=== PATIENT | male | born 1940 | race Two or more races ===

== ENCOUNTER 2020-05-31 11:11 | Emergency (ER) | payer OTHER, SELFPAY | END 2020-05-31 12:10 | disposition left against medical advice (07) | PROVIDERS: Emergency Provider Emergency Medicine; PCP Internal Medicine | DX: R21 Rash and other nonspecific skin eruption (principal) | CPT/HCPCS: 99281 ==

== ENCOUNTER 2020-09-11 | Outpatient (REF) | payer MEDICARE, MEDICAID, SELFPAY | END 2020-09-11 00:01 | disposition home or self-care (01) | LOC: HO.VC | PROVIDERS: Visit Provider Internal Medicine | DX: Z23 Encounter for immunization (principal) | CPT/HCPCS: 0011A ==

== ENCOUNTER 2020-10-09 | Outpatient (REF) | payer OTHER, SELFPAY | END 2020-10-09 00:01 | disposition home or self-care (01) | LOC: HO.VC | PROVIDERS: Visit Provider Internal Medicine | DX: Z23 Encounter for immunization (principal) | CPT/HCPCS: 0012A ==

== ENCOUNTER 2021-05-07 09:45 | Outpatient (REF) | payer OTHER, SELFPAY ==
[2021-05-07 10:03] LABS: MANUAL DIFF FLAG NO
[2021-05-07 10:27] LABS: Basophils Absolute Auto 0.1 X10*3/uL (0.0-0.2); Basophils Percent Auto 0.7 % (0-2); Eosinophils Absolute Auto 0.6 X10*3/uL (0.0-0.4); Eosinophils Percent Auto 6.8 % (0-4); Hematocrit 44.4 % (42-52); Hemoglobin 15.1 g/dl (14.0-18.0); Imm Gran Abs Auto 0.01 X10*3/uL (0.00-0.03); Imm Gran Pct Auto 0.1 % (0.0-0.4); Lymphocytes Absolute Auto 3.7 X10*3/uL (1.2-4.9); Lymphocytes Percent Auto 43.1 % (20-40); Mean Corpuscular Hemoglobin 32.5 pg (27.0-33.0); Mean Corpuscular Volume 95.5 fL (80-98); Mean Platelet Volume 9.3 fL (9.4-12.4); Monocytes Absolute Auto 0.6 X10*3/uL (0.1-1.2); Monocytes Percent Auto 6.9 % (2-11); Neutrophils Absolute Auto 3.6 X10*3/uL (2.0-8.3); Neutrophils Percent Auto 42.4 % (45-73); Platelet Count 232 X10*3/uL (160-400); Red Blood Count 4.65 X10*6/uL (4.60-5.80); Red Cell Distribution Width 13.6 % (11.0-16.0); White Blood Count 8.5 X10*3/uL (4.8-10.8)
[2021-05-07 10:56] LABS: Alanine Aminotransferase 16 U/L (0-40); Albumin Level 4.3 g/dL (3.5-5.0); Alkaline Phosphatase 61 U/L (39-117); Anion Gap 11 (12-20); Aspartate Amino Transferase 21 U/L (5-37); Bilirubin Total 0.5 mg/dL (0.0-1.0); Blood Urea Nitrogen 18 mg/dL (9-16); Calcium 9.6 mg/dL (8.4-10.2); Carbon Dioxide 26 mmol/L (22-29); Chloride 108 mmol/L (96-108); Cholesterol 164 mg/dL; Estimated Glomerular Filt Rate > 60; Glucose Random 99 mg/dL (60-115); HDL Cholesterol 38 mg/dL; LDL Cholesterol Calculated 104 mg/dl; Potassium 4.2 mmol/L (3.3-5.1); Sodium 141 mmol/L (135-145); Total Protein 7.2 g/dL (6.5-8.0); Triglycerides 110 mg/dL
[2021-05-07 11:12] LABS: Free T4 (Free Thyroxine) 0.99 ng/dL (0.71-1.85); Thyroid Stimulating Hormone 1.89 uIU/mL (0.32-4.0)
[2021-05-07 11:28] LABS: Folate 15.7 ng/mL (> or = 4.0); Vitamin B12 860 pg/mL (200-900)
== END 2021-05-07 09:46 | disposition home or self-care (01) ==
LOC: HO.LAB 09:45
PROVIDERS: PCP Internal Medicine; Visit Provider Internal Medicine
DX: I10 Essential (primary) hypertension (principal); E78.00 Pure hypercholesterolemia, unspecified
CPT/HCPCS: 36415; 80053; 80061; 82607; 82746; 84439; 84443; 85025

== ENCOUNTER 2021-06-03 14:25 | Outpatient (REF) | payer OTHER, SELFPAY ==
--- NOTE | ~2021-06-03 | US_ITS ---
EXAMINATION: US RETROPERITONEAL LIMITED (RENAL ONLY) CLINICAL INFORMATION: Calculus of kidney. COMPARISON: CT abdomen and pelvis 04/12/2020. Renal ultrasound 10/11/2019. TECHNIQUE: Real-time imaging of the kidneys. FINDINGS: RIGHT KIDNEY: 10.0 x 4.2 x 4.5 cm (SAG x AP x TRV). The kidney is normal in size, contour, and echogenicity. Renal cortical thickness is normal. No hydronephrosis. There is a small benign cyst medial upper pole measuring only 0.8 cm and small cyst lower pole measuring only 1.0 cm. No additional follow-up required. There is a focal specular echo 0.3 cm interpolar region with twinkling artifact on color Doppler suggesting nonobstructing calculus. Other scattered specular echoes in the sinus but without twinkling artifact or posterior shadowing to confirm calculi. LEFT KIDNEY: 10.0 x 4.2 x 5.0 cm (SAG x AP x TRV). The kidney is normal in size, contour, and echogenicity. Renal cortical thickness is normal. No renal calculi or hydronephrosis. There are several benign renal cysts present, largest is at upper pole 1.7 x 1.4 cm. There is also cyst interpolar region measuring 1.3 cm and 0.8 cm, respectively. No additional follow-up required. Scattered specular echoes are present in the renal sinus but without posterior shadowing or definite twinkling artifact to confirm nonobstructing calculi. US/US renal BI IMPRESSION: 1. No hydronephrosis or caliectasis. 2. Suspect nonobstructing calculus interpolar right kidney 0.3 cm. Other numerous bilateral renal sinus specular echoes are present but without twinkling artifact or posterior shadowing to confirm nonobstructing calculi. 3. Small bilateral benign cysts, largest left upper pole 1.7 cm. No additional follow-up required.
== END 2021-06-03 14:26 | disposition home or self-care (01) ==
LOC: HO.US 14:25
PROVIDERS: PCP Internal Medicine; Visit Provider Internal Medicine
DX: N20.0 Calculus of kidney (principal)
CPT/HCPCS: 76775

== ENCOUNTER 2021-11-11 08:24 | Emergency (ER) | payer OTHER, SELFPAY ==
--- NOTE | ~2021-11-11 | XR_ITS ---
EXAMINATION: XR CHEST CLINICAL INFORMATION: Cough COMPARISON: Previous chest x-ray April 2020 TECHNIQUE: 2 views of the chest were obtained. FINDINGS: The cardiac and mediastinal contours are stable. The lungs are clear. There is no pleural effusion or pneumothorax. There is mild scoliosis of the thoracic spine and degenerative changes. XR/XR chest 2V IMPRESSION: No evidence for acute disease in the chest.
[2021-11-11 08:42] VITALS: BP 119/82; PULSE 91; RESP 18; TEMP 36.9; O2SAT 94; BMI 25.2
[2021-11-11 09:09] LABS: COVID-19 Test Negative (Negative); IDNOW Serial# 16C4AD1C
[2021-11-11 09:27] LABS: Influenza A Negative (Negative); Influenza B2 Negative (Negative)
--- NOTE | 2021-11-11 09:44 | ED.URI ---
HPI - URI/Sore Throat General Chief Complaint: Upper Respiratory Symptoms Stated Complaint: throat pain Time Seen by Provider: 11/11/21 09:44 History of Present Illness HPI Narrative: Patient complains of productive cough for several days accompanied by pain in his throat when ever he coughs however he has no other pain in his throat and is eating and drinking normally, no shortness of breath no chest pain no Related Data Previous Rx's Medication Instructions Recorded losartan 100 mg tablet 100 mg PO DAILY #90 tab 04/28/21 losartan 100 1 tab PO DAILY 30 Days #30 tab 10/16/21 mg-hydrochlorothiazide 12.5 mg tablet acetaminophen 500 mg tablet 1,000 mg PO QID PRN #30 tab 11/11/21 azithromycin 250 mg tablet See Rx Instructions .ROUTE 11/11/21 (Zithromax Z-Hermann) .COMPLEX #6 tab Allergies Allergy/AdvReac Type Severity Reaction Status Date / Time cat dander [CATS] Allergy Mild RUNNY NOSE Verified 11/11/21 08:42 lisinopril Allergy Unknown Coughing Verified 11/11/21 08:42 amlodipine AdvReac Intermediate spots in Verified 11/11/21 08:42 eyes Review of Systems Review of Systems: Positive for cough Negatives are no fever no chills no dizziness weakness no fainting no feeling faint no difficulty breathing or swallowing no headache no stiff neck no chest pain no shortness of breath no abdominal pain no nausea vomiting or diarrhea no skin rash Yes all other systems are reviewed and are negative [facility] Past Medical History Source: nursing notes reviewed Medical History (Updated 11/11/21 @ 09:53 by CHARLI Palmer) BPH (benign prostatic hyperplasia) Hypertension Memory deficit Partial small bowel obstruction Renal calculus Surgical History (Updated 10/23/20 @ 21:25 by Jessenia Zhu MD) History of testicular surgery History of tonsillectomy Family History Family History (System 10/01/20 @ 13:46 by Brittany Hicks) Father No problems noted. Mother No problems noted. Father No problems noted. Mother No problems noted. Social History Social History (Updated 10/25/20 @ 09:52 by Silvia Castaneda CMA) Housing: Apartment Alcohol intake: current Alcohol intake frequency: a few times a month Patient Tobacco Use Status: Former Tobacco user Tobacco use type: Cigarette e-Cigarette/Vaping Use: Never Used Second Hand Smoke Exposure: No Advance Directives: Yes Advance Directives Information Provided: No Advance Directives on File: No Current occupational status: retired Physical Exam Vital Signs: Vital Signs: Last Vital Signs Temp 98.4 F 11/11/21 08:42 Pulse 91 11/11/21 08:42 Resp 18 11/11/21 08:42 BP 119/82 11/11/21 08:42 Pulse Ox 94 11/11/21 08:42 BMI result Body Mass Index 25.2 General appearance no distress comfortable relaxed cooperative Eyes no redness no discharge The sinuses nontender The pharynx is clear with no redness swelling or exudate Neck is supple no lymphadenopathy The chest is clear to auscultation with full symmetric equal breath sounds Heart no murmur Abdomen soft nontender Extremities full range of motion x4 with no calf swelling or tenderness no edema Skin no rash Course Course Course Narrative: X-ray was negative, well-appearing patient with a cough with no difficulty breathing, tolerating p.o., clear lungs is discharged with antibiotic treatment for bronchitis MDM - URI/Sore Throat Lab Data Labs: Lab Results 11/11/21 11/11/21 Range/Units 08:47 08:47 COVID-19 (BERTHA) Negative (Negative) COVID-19 Clin Com See Note Influenza Type A (KRISTA) Negative (Negative) Influenza Type B (KRISTA) Negative (Negative) Influenza A & B Note See Note Discharge Plan Discharge Clinical Impression: Bronchitis Patient Disposition: Home, Self-Care Additional Instructions: Testing for COVID and flu were negative Chest x-ray did not show any pneumonia, physical exam and vital signs were normal We are treating for bronchitis with antibiotics Zithromax It is a good idea to take probiotics available [id number] in the vitamin section of the pharmacy to prevent diarrhea from antibiotics Return any time for difficulty breathing, any worse condition or any concerns Prescriptions: New azithromycin [Zithromax Z-Hermann] 250 mg tablet See Rx Instructions .ROUTE .COMPLEX Qty: 6 0RF Rx Instructions: For 250 mg dose pack: take 500 mg today (day 1), then 250 mg for 4 days (days 2-5) acetaminophen 500 mg tablet 1,000 mg PO QID PRN (Reason: pain) Qty: 30 0RF No Action losartan 100 mg tablet 100 mg PO DAILY Qty: 90 1RF losartan-hydrochlorothiazide 100-12.5 mg tablet 1 tab PO DAILY 30 Days Qty: 30 3RF Interventions: ED Discharge Assessment Last Done: 11/11/21 10:03 Discharge Date/Time: 11/11/21 10:05
--- NOTE | 2021-11-11 10:02 | PC.NURSE ---
PT AWAKE, ALERT AND ORIENTED X 3. SKIN PINK WARM AND DRY. RESP UNLBAORED. SPEAKING IN FULL CLEARN SENTENCES. MANAGING SECRETIONS. NO COUGH NOTED. NO ACUTE DISTRESS EVALUATED BY PROVIDER. PLAN IS FOR DC HOME. PT AGREEABLE TO PLAN
== END 2021-11-11 10:05 | disposition home or self-care (01) ==
PROVIDERS: Emergency Provider Emergency Medicine; PCP Internal Medicine
DX: J40 Bronchitis, not specified as acute or chronic (principal); Z20.822 Contact with and (suspected) exposure to COVID-19
CPT/HCPCS: 71046; 87502; 87635; 99282; 99283

== ENCOUNTER 2022-03-18 12:29 | Outpatient (REF) | payer OTHER, SELFPAY ==
[2022-03-18 14:03] LABS: Appearance Urine CLEAR; Color Urine YELLOW; Glucose Urine UA NEG (NEG); Leukocyte Esterase Urine NEG (NEG); Nitrite Urine NEG (NEG); Specific Gravity - Urine 1.015 (1.005-1.025); Urine Blood NEG (NEG); Urine Ketones NEG (NEG); Urine Protein NEG (NEG-TRACE)
[2022-03-18 14:24] LABS: Squamous Epithelial Cell Urine TRACE /LPF
[2022-03-18 14:25] LABS: WBC Urine 0-2 /HPF (0-4)
== END 2022-03-18 12:30 | disposition home or self-care (01) ==
LOC: HO.LAB 12:29
PROVIDERS: PCP Internal Medicine; Visit Provider Internal Medicine
DX: R10.9 Unspecified abdominal pain (principal); N20.0 Calculus of kidney
CPT/HCPCS: 81001

== ENCOUNTER 2022-03-19 11:23 | Outpatient (REF) | payer OTHER, SELFPAY ==
[2022-03-19 11:43] LABS: MANUAL DIFF FLAG NO
[2022-03-19 12:19] LABS: Basophils Absolute Auto 0.1 X10*3/uL (0.0-0.2); Basophils Percent Auto 0.5 % (0-2); Eosinophils Absolute Auto 0.6 X10*3/uL (0.0-0.4); Eosinophils Percent Auto 5.6 % (0-4); Hematocrit 38.6 % (42.0-52.0); Hemoglobin 13.4 g/dl (14.0-18.0); Imm Gran Abs Auto 0.03 X10*3/uL (0.00-0.03); Imm Gran Pct Auto 0.3 % (0.0-0.4); Lymphocytes Absolute Auto 2.6 X10*3/uL (1.2-4.9); Lymphocytes Percent Auto 23.8 % (20-40); Mean Corpuscular HGB Conc 34.7 g/dl (31.0-36.0); Mean Corpuscular Hemoglobin 32.4 pg (27.0-33.0); Mean Corpuscular Volume 93.5 fL (80.0-98.0); Mean Platelet Volume 9.1 fL (9.4-12.4); Monocytes Absolute Auto 0.7 X10*3/uL (0.1-1.2); Monocytes Percent Auto 6.2 % (2-11); Neutrophils Absolute Auto 6.9 x10*3/uL (2.0-8.3); Neutrophils Percent Auto 63.6 % (45-73); Platelet Count 199 X10*3/uL (160-400); Red Blood Count 4.13 X10*6/uL (4.60-5.80); Red Cell Distribution Width 13.2 % (11.0-16.0); White Blood Count 10.8 X10*3/uL (4.8-10.8)
[2022-03-19 12:45] LABS: Alanine Aminotransferase 14 U/L (0-40); Albumin Level 4.2 g/dL (3.5-5.0); Alkaline Phosphatase 52 U/L (39-117); Anion Gap 13 (12-20); Aspartate Amino Transferase 21 U/L (5-37); Bilirubin Total 1.3 mg/dL (0.0-1.0); Blood Urea Nitrogen 21 mg/dL (9-16); Calcium 8.9 mg/dL (8.4-10.2); Carbon Dioxide 28 mmol/L (22-29); Chloride 104 mmol/L (96-108); Cholesterol 132 mg/dL; Estimated Glomerular Filt Rate > 60; Glucose Random 89 mg/dL (60-115); HDL Cholesterol 33 mg/dL; LDL Cholesterol Calculated 73 mg/dl; Potassium 3.6 mmol/L (3.3-5.1); Sodium 141 mmol/L (135-145); Triglycerides 133 mg/dL
[2022-03-19 13:07] LABS: Thyroid Stimulating Hormone 1.47 uIU/mL (0.32-4.0)
[2022-03-19 13:53] LABS: Folate 9.7 ng/mL (> or = 4.0); Vitamin B12 761 pg/mL (200-900)
== END 2022-03-19 11:24 | disposition home or self-care (01) ==
LOC: HO.LAB 11:23
PROVIDERS: PCP Internal Medicine; Visit Provider Internal Medicine
DX: I10 Essential (primary) hypertension (principal); E78.00 Pure hypercholesterolemia, unspecified
CPT/HCPCS: 36415; 80053; 80061; 82607; 82746; 84439; 84443; 85025

== ENCOUNTER 2022-04-22 11:27 | Outpatient (REF) | payer OTHER, SELFPAY ==
--- NOTE | ~2022-04-22 | US_ITS ---
EXAMINATION: US RETROPERITONEAL LIMITED (RENAL ONLY) CLINICAL INFORMATION: Flank pain. Kidney stone. COMPARISON: Renal ultrasound 06/03/2021 and 10/11/2019. X-ray abdomen 04/13/2020. CT abdomen and pelvis 04/12/2020. TECHNIQUE: Real-time imaging of the kidneys. FINDINGS: RIGHT KIDNEY: 9.9 x 5.7 x 5.8 cm (SAG x AP x TRV). The kidney is normal in size, contour, and echogenicity. Renal cortical thickness is normal. There are 2 cysts measuring 1 cm in the upper and lower pole. No renal calculi or hydronephrosis. LEFT KIDNEY: 10.2 x 4.3 x 4.5 cm (SAG x AP x TRV). The kidney is normal in size, contour, and echogenicity. Renal cortical thickness is normal. There is a minimally complex cyst with septation in the upper pole measuring 1.2 x 1.7 x 1.9 cm. There is a 1 x 1.2 cm simple cyst in the midpole. There is a 2 mm echogenic density in the upper pole. This does not demonstrate acoustic shadowing or twinkle artifact to confirm a stone. No hydronephrosis. US/US renal BI IMPRESSION: Small bilateral renal cysts. 2 mm echogenic density in the upper pole questionable for a stone.
== END 2022-04-22 11:28 | disposition home or self-care (01) ==
LOC: HO.HMGCX 11:27
PROVIDERS: PCP Internal Medicine; Visit Provider Internal Medicine
DX: R10.9 Unspecified abdominal pain (principal); N20.0 Calculus of kidney
CPT/HCPCS: 76775

== ENCOUNTER 2022-10-26 14:29 | Outpatient (REF) | payer OTHER, SELFPAY ==
[2022-10-26 14:59] LABS: MANUAL DIFF FLAG NO
[2022-10-26 15:22] LABS: Basophils Absolute Auto 0.1 X10*3/uL (0.0-0.2); Basophils Percent Auto 0.5 % (0-2); Eosinophils Absolute Auto 0.7 X10*3/uL (0.0-0.4); Eosinophils Percent Auto 6.8 % (0-4); Imm Gran Abs Auto 0.03 X10*3/uL (0.00-0.03); Imm Gran Pct Auto 0.3 % (0.0-0.4); Immature Retic Fraction 10.5 % (2.3-13.4); Lymphocytes Absolute Auto 3.8 X10*3/uL (1.2-4.9); Lymphocytes Percent Auto 39.6 % (20-40); Mean Corpuscular HGB Conc 34.1 g/dl (31.0-36.0); Mean Corpuscular Hemoglobin 32.8 pg (27.0-33.0); Mean Platelet Volume 9.5 fL (9.4-12.4); Monocytes Absolute Auto 0.7 X10*3/uL (0.1-1.2); Monocytes Percent Auto 7.2 % (2-11); Neutrophils Absolute Auto 4.4 x10*3/uL (2.0-8.3); Neutrophils Percent Auto 45.6 % (45-73); Platelet Count 229 X10*3/uL (160-400); Red Blood Count 4.27 X10*6/uL (4.60-5.80); Red Cell Distribution Width 13.2 % (11.0-16.0); Retic HGB Equivalent 37.5 pg (30.0-35.0); Reticulocyte Percent 1.3 % (0.5-1.8); Reticulocytes Absolute 0.055 X10*6/uL (0.026-0.095); White Blood Count 9.6 X10*3/uL (4.8-10.8)
[2022-10-26 16:08] LABS: Alanine Aminotransferase 14 U/L (0-40); Albumin Level 4.1 g/dL (3.5-5.0); Alkaline Phosphatase 66 U/L (39-117); Anion Gap 9 (12-20); Aspartate Amino Transferase 22 U/L (5-37); Bilirubin Total 0.9 mg/dL (0.0-1.0); Blood Urea Nitrogen 19 mg/dL (9-16); Calcium 9.7 mg/dL (8.4-10.2); Carbon Dioxide 30 mmol/L (22-29); Chloride 109 mmol/L (96-108); Estimated Glomerular Filt Rate > 60; Glucose Random 82 mg/dL (60-115); Iron 124 mcg/dL (45-160); Percent Iron Saturation 51 % (15-50); Potassium 4.3 mmol/L (3.3-5.1); Sodium 144 mmol/L (135-145); Total Iron Binding Capacity 242 mcg/dL (228-428); Total Protein 7.1 g/dL (6.5-8.0); Unsaturated Iron Binding 118 ug/dL
[2022-10-26 16:27] LABS: Ferritin 144 ng/mL (20-250); Folate 10.2 ng/mL (> or = 4.0); Vitamin B12 501 pg/mL (200-900)
== END 2022-10-26 14:30 | disposition home or self-care (01) ==
LOC: HO.LAB 14:29
PROVIDERS: PCP Internal Medicine; Visit Provider Internal Medicine
DX: I10 Essential (primary) hypertension (principal); D64.9 Anemia, unspecified
CPT/HCPCS: 36415; 80053; 82607; 82728; 82746; 83540; 85025; 85045

== ENCOUNTER 2022-12-23 12:25 | Outpatient (REF) | payer OTHER, SELFPAY ==
--- NOTE | ~2022-12-23 | CT_ITS ---
EXAMINATION: CT MAXILLOFACIAL WITHOUT CONTRAST CLINICAL INFORMATION: Deviated nasal septum. COMPARISON: CT head from 05/28/2012. TECHNIQUE: Multidetector helical imaging was performed in the axial plane with generation of coronal and sagittal reformatted images. This CT examination was performed using dose optimization techniques as appropriate, variously including the following: *Automated exposure control. *Adjustment of mA and/or kV according to patient size (this includes techniques or standardized protocols for targeted exams where dose is matched to indication/reason for exam; i.e. extremities or head). *Use of iterative reconstruction technique. DLP: 102 mGy-cm FINDINGS: FRONTAL SINUSES AND DRAINAGE PATHWAYS: Minimal mucosal thickening of the frontal sinuses. The frontoethmoidal recesses are patent. MAXILLARY SINUSES AND DRAINAGE PATHWAYS: Minimal mucosal thickening of the maxillary sinuses. The maxillary ostia and infundibula are patent. ETHMOID SINUSES: Mild mucosal thickening of the ethmoid air cells. The ethmoid roofs appear symmetric and intact. SPHENOID SINUS AND DRAINAGE PATHWAYS: The sphenoid sinus is clear. The sphenoethmoidal recesses are patent. NASAL PASSAGE: Mild to moderate mucosal thickening of the nasal passages. Left-sided fani bulbosa. Moderate leftward deviation with spurring. ADDITIONAL RELEVANT FINDINGS: The lamina papyracea are intact. No demonstrated abnormalities of the orbits. The carotid canals are normally covered by bone. No significant maxillary periapical disease. 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 Mild degenerative arthropathy of the right temporomandibular joint. The mastoid air cells and middle ear cavities remain well aerated. Limited evaluation of the intracranial structures without significant abnormalities. CT/CT sinus wo IV con IMPRESSION: 1. Mild sinonasal mucosal disease. 2. Left-sided fani bulbosa. Moderate leftward deviation of the nasal septum with spurring. 3. 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
== END 2022-12-23 12:26 | disposition home or self-care (01) ==
LOC: HO.CT 12:25
PROVIDERS: PCP Internal Medicine; Visit Provider Otolaryngology
DX: J33.0 Polyp of nasal cavity (principal)
CPT/HCPCS: 70486

== ENCOUNTER 2023-01-15 12:55 | Outpatient (REF) | payer OTHER, SELFPAY ==
--- NOTE | ~2023-01-15 | US_ITS ---
EXAMINATION: US RETROPERITONEAL LIMITED (RENAL ONLY) CLINICAL INFORMATION: Calculus of kidney. COMPARISON: Renal ultrasound 04/22/2022 and 06/03/2021. X-ray abdomen 04/13/2020. CT abdomen and pelvis 04/12/2020. TECHNIQUE: Real-time imaging of the kidneys. FINDINGS: RIGHT KIDNEY: 10.2 x 4.6 x 4.2 cm (SAG x AP x TRV). The kidney is normal in size, contour, and echogenicity. Renal cortical thickness is normal. Some echogenic foci are noted in the kidney that do not necessarily represent stones, as none were seen on prior CT scans. These may represent vascular interfaces. No renal calculi or hydronephrosis. An upper and lower pole benign Bosniak class I renal cyst is present measuring 1.2 and 1.3 cm respectively. No additional imaging or followup is needed. No solid renal masses. LEFT KIDNEY: 10.4 x 4.7 x 4.5 cm (SAG x AP x TRV). The kidney is normal in size, contour, and echogenicity. Some echogenic foci are noted in the kidney that do not necessarily represent stones, as none were seen on prior CT scans. These may represent vascular interfaces. Renal cortical thickness is normal. No renal calculi or hydronephrosis. Upper and midpole benign Bosniak class I renal cysts are present measuring 1.8 and 1.5 cm respectively. No additional imaging or followup needed. No solid renal masses. US/US renal BI IMPRESSION: No definite renal calculi are seen. Echogenic foci probably represent vascular interfaces. A CT scan would be more sensitive.
== END 2023-01-15 12:56 | disposition home or self-care (01) ==
LOC: HO.US 12:55
PROVIDERS: PCP Internal Medicine; Visit Provider Internal Medicine
DX: N20.0 Calculus of kidney (principal)
CPT/HCPCS: 76775

== ENCOUNTER 2023-01-25 14:49 | Outpatient (AMB) | payer OTHER, SELFPAY ==
--- NOTE | 2023-01-25 14:55 | A.OFFVIS_ITS ---
Intake Intake Visit Reasons: bi renal cysts/ ? stone Intake Note: NEW Patient presents today to established treatment for Renal Cyst. ? Meds: None ? Allergies to Antibiotic: ? 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 01/25/23-- Nicko is an 82-year-old gentleman who is here for evaluation due to left sided abdominal pain. He is concerned about having kidney stones. The patient states having left sided back pain. Mentions that he is unable to walk for more than five minutes or exercise due to pain which resolves while sitting and relaxing. I have discussed renal US--01/15/23--there are some echogenic changes which do not meet the criteria of kidney stone and likely represent vascular interfaces. I have discussed getting a CAT scan can be more sensitive. However, if there are any tiny stones by increasing the fluid intake will help the stones to pass. There is no evidence of hydronephrosis at this time. I have discussed that I do not feel the pain is related, it maybe musculoskeletal. Patient describes that the pain occurs when he is more active such as walking occasionally he will get the pain and while he is sitting at a desk the pain will usually resolves by changing position and lying down. I have advised to increase his fluid intake. He may benefit from heating pads PRN. Evaluation today-- Blood: 10 Rickey/uL, leukocytes: negative. Bladder scan PVR: 8 mL. On exam: No cva tenderness, abdomen was non-tender. Renal US results reviewed--01/15/23--No definite renal calculi are seen. Echogenic foci probably represent vascular interfaces. Bilateral renal cysts. Plan: I have discussed that I do not feel the pain is related, it maybe musculoskeletal. Discussed to consume adequate amount of water. Follow-up PRN. [facility] Medical History BPH (benign prostatic hyperplasia) Hypertension Memory deficit Partial small bowel obstruction Renal calculus Surgical History History of testicular surgery History of tonsillectomy Family History Father No problems noted. Mother No problems noted. Father No problems noted. Mother No problems noted. Social History Housing: Apartment Alcohol intake: current Alcohol intake frequency: a few times a month Patient Tobacco Use Status: Former Tobacco user Tobacco use type: Cigarette Years Smoked: quit 1980 e-Cigarette/Vaping Use: Never Used Second Hand Smoke Exposure: No Current occupational status: retired Cognitive needs: No Hearing needs: No Vision needs: Yes Review of Systems Const All systems reviewed & are unremarkable except as noted in HPI and below Reports no additional complaints Eyes Reports no additional complaints ENT Reports no additional complaints Card Denies dyspnea Resp Denies cough and Denies dyspnea GI Reports no additional complaints Musc Reports no additional complaints Skin/Breast Denies rash and Denies unusual bruising Neuro Reports no additional complaints Psych Reports no additional complaints Endo Reports no additional complaints Raudel/Lymph Reports no additional complaints Aller/Immun Reports no additional complaints Physical Exam Const General: healthy appearing, no acute distress and well developed Orientation/consciousness: patient oriented x3 HEENT Head: Yes normocephalic and Yes atraumatic Eyes Conjunctivae: conjunctivae normal Neck Neck: Yes normal visual inspection Chest Chest palpation & inspection: normal inspection of the chest Resp Effort & Inspection: normal respiratory effort Cardio Rate: regular rate GI Inspection: Yes normal to inspection Palpation (GI): Soft to palpation General: Yes no CVA tenderness Back/Spine/Pelvis Back: no CVA tenderness Skin General skin exam: no rashes or lesions noted Neuro General: patient oriented x3 Extrem General: No pedal edema Psych Appearance: grossly normal Affect: normal affect Office Procedures Post Void Residual Post Residual Void Post Void Residual (PVR): 8 [id number] Void Residual by ultrasound Results AMB Urinalysis, Automated UA Leukoctes 0 Pily/uL Last Edit by NIDHI Pelayo on 01/25/23 15:07 UA Nitrite Negative Last Edit by Noe Piznon Gayle on 01/25/23 15:07 UA Urobilinogen 0.2 mg/dL Last Edit by Noe Pinzon Gayle on 01/25/23 15:0 7 UA Protein 0 mg/dL Last Edit by Noe Pinzon Gayle on 01/25/23 15:07 UA pH 6.0 Last Edit by Noe Pinzon [facility] on 01/25/23 15:07 UA Blood 10 Rickey/uL Last Edit by Noe Pinzon Gayle on 01/25/23 15:07 UA Specific [place] 1.025 Last Edit by Noe Pinzon [facility] on 01/25/23 15: 07 UA Ketone Negative Last Edit by Noe Pinzon Gayle on 01/25/23 15:07 UA Bilirubin 0 mg/dL Last Edit by Noe Pinzon Gayle on 01/25/23 15:07 UA Glucose 0 mg/dL Last Edit by Noe Pinzon [facility] on 01/25/23 15:07 Results Reviewed Results Reviewed: Laboratory Last Values Urine pH (Auto) 6.0 01/25/23 14:57 Specific [place] (Auto) 1.025 01/25/23 14:57 Urine Protein (Auto) 0 mg/dL 01/25/23 14:57 Glucose (UA)(Auto) 0 mg/dL 01/25/23 14:57 Urine Ketones (Auto) Negative 01/25/23 14:57 Urine Blood (Auto) 10 Rickey/uL 01/25/23 14:57 Urine Nitrite (Auto) Negative 01/25/23 14:57 Urine Bilirubin (Auto) 0 mg/dL 01/25/23 14:57 Urine Urobilinogen (Auto) 0.2 mg/dL 06/19/23 14:57 Leukocyte Esterase (Auto) 0 Pily/uL 01/25/23 14:57 Date of Service: 01/15/23 EXAMINATION: US RETROPERITONEAL LIMITED (RENAL ONLY) CLINICAL INFORMATION: Calculus of kidney. COMPARISON: Renal ultrasound 04/22/2022 and 06/03/2021. X-ray abdomen 04/13/2020. CT abdomen and pelvis 04/12/2020. TECHNIQUE: Real-time imaging of the kidneys. FINDINGS: RIGHT KIDNEY: 10.2 x 4.6 x 4.2 cm (SAG x AP x TRV). The kidney is normal in size, contour, and echogenicity. Renal cortical thickness is normal. Some echogenic foci are noted in the kidney that do not necessarily represent stones, as none were seen on prior CT scans. These may represent vascular interfaces. No renal calculi or hydronephrosis. An upper and lower pole benign Bosniak class I renal cyst is present measuring 1.2 and 1.3 cm respectively. No additional imaging or followup is needed. No solid renal masses. LEFT KIDNEY: 10.4 x 4.7 x 4.5 cm (SAG x AP x TRV). The kidney is normal in size, contour, and echogenicity. Some echogenic foci are noted in the kidney that do not necessarily represent stones, as none were seen on prior CT scans. These may represent vascular interfaces. Renal cortical thickness is normal. No renal calculi or hydronephrosis. Upper and midpole benign Bosniak class I renal cysts are present measuring 1.8 and 1.5 cm respectively. No additional imaging or followup needed. No solid renal masses. IMPRESSION: No definite renal calculi are seen. Echogenic foci probably represent vascular interfaces. A CT scan would be more sensitive. Assessment & Plan Assessment & Plan (1) Left sided abdominal pain: Code(s): R10.9 - Unspecified abdominal pain (2) Renal cyst: Code(s): N28.1 - Cyst of kidney, acquired Plan I have discussed that I do not feel the pain is related, it maybe musculoskeletal. Discussed importance to consume adequate amount of water. Follow-up PRN. Orders: Orders AMB Urinalysis Automated 01/25/23 Z13.9 - Encounter for screening, unspecified AMB Post Void Residual by ultrasound 01/25/23 N39.8 - Other specified disorders of urinary system Patient Instructions: The patient had an opportunity to ask questions regarding treatment plan. All questions were answered. Imaging, Laboratory studies and physical exam results were discussed and reviewed in detail. No major barriers to understanding were identified. The patient expressed understanding and agreement with the above treatment plan. The patient is aware they should contact our office by phone for worsening of their current condition or the appearance of new symptoms. Compliance is encouraged with any medications and followup testing that is ordered. It is a privilege to be allowed the opportunity to participate in the urologic care of your patient. If you have any questions or concerns regarding treatment for the above conditions please do not hesitate to contact me. The office telephone contact is [phone]. This note is constructed in part using voice recognition software. While every effort has been made to ensure accuracy senior health educator errors may have been included. Yours sincerely, Stacy Garcia MD Coding Level of Care Code New Pt Level 3 (35838) Diagnoses Left sided abdominal pain R10.9 Renal cyst N28.1 CPT Codes Post Residual Void - PVR CPT Code: 60922-Llin Void Residual by ultrasound ([id number])
== END 2023-01-25 16:03 | disposition home or self-care (01) ==
LOC: HO.HUSH 14:49
PROVIDERS: PCP Internal Medicine; Visit Provider Urology
DX: R10.9 Unspecified abdominal pain (principal); N28.1 Cyst of kidney, acquired
CPT/HCPCS: 99203

== ENCOUNTER → 2023-01-25 14:49 | Outpatient (BNVA) | payer OTHER, SELFPAY | PROVIDERS: PCP Internal Medicine; Visit Provider Urology | DX: N28.1 Cyst of kidney, acquired (principal); R10.9 Unspecified abdominal pain | CPT/HCPCS: 51798; 99202 ==

== ENCOUNTER 2023-04-14 08:27 | Outpatient (AMB) | payer OTHER, SELFPAY ==
--- NOTE | 2023-04-14 08:35 | MHC.PC.OV ---
Vital Signs 04/14/23 08:37 Height 5 ft 6 in Weight 141 lb 6 oz BMI 22.8 BP 90/60 Blood Pressure Location Lt brachial Position Sitting Pulse 56 Pulse Source Pulse Oximeter Pulse Oximetry (%) 96 Oxygen Delivery Method Room Air Intake Visit Reasons: left sided torso pain Intake Note: Patient is here today for left side torso pain ongoing for a year. 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: Not Required per policy Accompanied by: Self / Same As Patient Allergies cat dander [CATS] Allergy (Mild, Verified 04/14/23 08:45) RUNNY NOSE lisinopril Allergy (Unknown, Verified 04/14/23 08:45) Coughing amlodipine Adverse Reaction (Intermediate, Verified 04/14/23 08:45) spots in eyes Medication List - Last Reconciled 04/14/23 by Salo Ramires PA-C losartan-hydrochlorothiazide 100-12.5 mg 1 tab PO DAILY Tobacco use date assessed: 04/14/23 Fall risk assessment: No Falls in past year Last assessed Fall Risk: 04/14/23 Dental Screening Dental Screen Date: 04/14/23 Did you have a dental visit in the last 12 months?: Yes Did you have a dental problem in the last 6 months where you did not have access to dental care?: No Was dental information given to patient?: Patient has dentist HPI left sided torso pain HPI Details Patient is an 82-year-old male here today for problem visit. This is the 1st time I am meeting this 82-year-old male with a past medical history significant for hypertension, BPH, nephrolithiasis. He reports over the last nearly year having chronic left flank pain. Has gotten ultrasounds of his kidney without any cyst or nephrolithiasis noted. Denies any changes in his bowel or urination habits. He is concerned as his appetite is been lower and has lost weight over the last year. In review of labs did note a slight anemia.. He is not interested in colonoscopy at this time. Also concerned about having intermittent ear congestion. Does have history of sinusitis. He does have a cat at home he believes he is allergic to. [facility] Medical History BPH (benign prostatic hyperplasia) Hypertension Memory deficit Partial small bowel obstruction Renal calculus Surgical History History of tonsillectomy History of testicular surgery Family History Father No problems noted. Mother No problems noted. Father No problems noted. Mother No problems noted. Social History Housing: Apartment Alcohol intake: current Alcohol intake frequency: a few times a month Patient Tobacco Use Status: Former Tobacco user Tobacco use type: Cigarette Years Smoked: 1980 e-Cigarette/Vaping Use: Never Used Second Hand Smoke Exposure: No service: No Current occupational status: retired Cognitive needs: No Hearing needs: No Vision needs: Yes Questionnaire Thrive Questionnaire Date Thrive assessed: 09/18/22 CORI-7 AMB Questionnaire CORI-7 Date CORI - 7 assessed: 09/18/22 Source: Developed by Drs. Bill De Anda, Marialuisa Ma, Kevin Meadows and colleagues, with an educational ny from [employer]. Review of Systems Const Denies headache(s) Eyes Denies loss of vision ENT Denies vertigo, Denies dizziness, Denies headache(s) and Denies sore throat Card Denies chest pain, Denies leg edema and Denies lightheadedness Resp Denies cough, Denies hemoptysis and Denies wheezing GI Details: + LEFT FLANK PAIN Reports abdominal pain, Denies melena, Denies constipation, Denies diarrhea and Denies vomiting Denies dysuria, Denies urinary frequency and Denies urinary urgency Musc Denies arthralgias, Denies joint swelling, Denies numbness and Denies tingling Neuro Denies Abnormal speech present, Denies behavioral changes, Denies vertigo, Denies dizziness, Denies headache(s), Denies loss of vision, Denies memory loss, Denies numbness and Denies tingling Psych Denies anxiety, Denies behavioral changes, Denies depression, Denies memory loss and Denies panic attacks Raudel/Lymph Denies easy bleeding and Denies easy bruising Aller/Immun Denies wheezing Physical exam (Primary Care) Vital Signs: Last Vital Signs Pulse 56 04/14/23 08:37 BP 90/60 04/14/23 08:37 Pulse Ox 96 04/14/23 08:37 Oxygen Delivery Method Room Air 04/14/23 08:37 BMI result Body Mass Index 22.8 Tobacco/Smoking Status: Tobacco use Status Tobacco use date assessed 04/14/23 04/14/23 08:42 Patient Tobacco Use Status Former Tobacco user 04/14/23 08:42 Tobacco use type Cigarette 04/14/23 08:42 e-Cigarette/Vaping Use Never Used 04/14/23 08:42 Thrive Assessment: Date of Thrive Assessment Date Thrive assessed 09/18/22 04/14/23 08:42 Const General: healthy appearing, no acute distress, alert and awake Nutritional Appearance: well nourished Orientation/consciousness: oriented to person, oriented to place and oriented to time HENMT Ears: TM's normal bilaterally General nose exam: Normal nasal mucous membranes and turbinates present Eyes Conjunctivae: conjunctivae normal Sclerae: sclerae normal Pupils: Equal, round and reactive pupils present Neck Neck: Yes no lymphadenopathy and Yes no JVD Thyroid: Thyroid normal Carotids: no bruits Resp Effort & Inspection: normal respiratory effort and not tachypneic Auscultation: no crackles, no rales, no rhonchi and no wheezes Cardio Rate: regular rate Rhythm: regular rhythm Heart sounds: no murmurs and normal S1 and S2 GI Palpation (GI): Soft to palpation, nontender, no hepatomegaly and no splenomegaly Auscultation: normal bowel sounds Skin General skin exam: no rashes or lesions noted and dry skin Neuro General: oriented to person, oriented to place and oriented to time Cranial nerves: Yes Equal, round and reactive pupils present Speech: No Abnormal speech present Gait exam (Neuro): Normal gait present Motor exam (neuro): no tremor noted Extrem Right upper extremity: full ROM Left upper extremity: full ROM Right lower extremity: full ROM; no edema Left lower extremity: full ROM; no edema Psych Mental Status: mental status grossly normal Speech and movement: Normal speech and movement present Affect: normal affect Attitude: cooperative Thought process: Normal thought process present Assessment and Plan Assessment & Plan (1) Left sided abdominal pain: Code(s): R10.9 - Unspecified abdominal pain Plan: Patient has had a 1 year history of left sided abdominal pain flank pain. Ultrasounds without evidence of nephrolithiasis. Has noted weight loss and reduced appetite. Will send for CT of abdomen to evaluate for any GI mass noted in the area. (2) Anemia: Code(s): D64.9 - Anemia, unspecified Qualifiers: Anemia type: other cause Other causes of anemia: other cause, not classified Qualified Code(s): D64.89 - Other specified anemias Plan: Noted slight anemia on previous labs thus will check CBC. (3) Flank pain: Comment: LEFT Code(s): R10.9 - Unspecified abdominal pain Plan: As above (4) Ear congestion: Code(s): H93.8X9 - Other specified disorders of ear, unspecified ear Qualifiers: Laterality: bilateral Qualified Code(s): H93.8X3 - Other specified disorders of ear, bilateral Plan: Patient reports intermittent bilateral ear congestion. Physical exam without any ear cerumen noted. Likely has eustachian tube dysfunction. Does report having allergies and does have a cat at home. Will supply patient with antihistamine therapy Orders: Orders Lipase 04/14/23 I10 - Essential (primary) hypertension CT abdomen w IV con 04/14/23 R10.9 - Unspecified abdominal pain, R63.4 - Abnormal weight loss Complete Blood Count no Diff 04/14/23 I10 - Essential (primary) hypertension Comprehensive Met. Panel 04/14/23 I10 - Essential (primary) hypertension Medications: New loratadine 10 mg PO DAILY 90 days 90 tabs 0RF H93.8X9 - Other specified disorders of ear, unspecified ear miscellaneous medical supply (Blood Pressure Cuff) As directed 1 ea 0RF I10 - Essential (primary) hypertension losartan 100 mg PO DAILY 30 days 30 tabs 1RF I10 - Essential (primary) hypertension On Hold losartan-hydrochlorothiazide 100-12.5 mg Hold Comment: Doctor's Order 1 tab PO DAILY 30 tabs 4RF I10 - Essential (primary) hypertension Coding Level of Care Code Est Pt Level 4 (97821) Diagnoses Left sided abdominal pain R10.9 Anemia due to other cause, not classified D64.89 Anemia type: other cause Other causes of anemia: other cause, not classified Flank pain R10.9 Congestion of both ears H93.8X3 Laterality: bilateral
[2023-04-14 08:37] VITALS: BP 90/60; PULSE 56; O2SAT 96; BMI 22.8
== END 2023-04-14 09:10 | disposition home or self-care (01) ==
PROVIDERS: PCP Internal Medicine; Visit Provider Physician Assistant
DX: R10.9 Unspecified abdominal pain (principal); D64.89 Other specified anemias; H93.8X3 Other specified disorders of ear, bilateral
CPT/HCPCS: 99214

== ENCOUNTER 2023-04-14 09:15 | Outpatient (REF) | payer OTHER, SELFPAY ==
[2023-04-14 10:06] LABS: Hemoglobin 13.6 g/dl (14.0-18.0); Mean Corpuscular Hemoglobin 32.5 pg (27.0-33.0); Mean Corpuscular Volume 95.7 fL (80.0-98.0); Mean Platelet Volume 9.9 fL (9.4-12.4); Platelet Count 178 X10*3/uL (160-400); Red Blood Count 4.18 X10*6/uL (4.60-5.80); Red Cell Distribution Width 13.2 % (11.0-16.0); White Blood Count 6.5 X10*3/uL (4.8-10.8)
[2023-04-14 10:56] LABS: Alanine Aminotransferase 14 U/L (0-40); Alkaline Phosphatase 51 U/L (39-117); Anion Gap 12 (12-20); Aspartate Amino Transferase 22 U/L (5-37); Bilirubin Total 1.3 mg/dL (0.0-1.0); Blood Urea Nitrogen 20 mg/dL (9-16); Calcium 9.7 mg/dL (8.4-10.2); Carbon Dioxide 28 mmol/L (22-29); Chloride 107 mmol/L (96-108); Estimated Glomerular Filt Rate 59; Glucose Random 88 mg/dL (60-115); Lipase 26 U/L (8-78); Potassium 3.9 mmol/L (3.3-5.1); Sodium 143 mmol/L (135-145); Total Protein 6.9 g/dL (6.5-8.0)
== END 2023-04-14 09:16 | disposition home or self-care (01) ==
LOC: HO.LAB 09:15
PROVIDERS: PCP Internal Medicine; Visit Provider Physician Assistant
DX: I10 Essential (primary) hypertension (principal); R10.9 Unspecified abdominal pain; R63.4 Abnormal weight loss
CPT/HCPCS: 36415; 80053; 83690; 85027

== ENCOUNTER 2023-05-24 15:41 | Outpatient (AMB) | payer OTHER, SELFPAY ==
[2023-05-24 15:46] VITALS: BP 138/88; PULSE 72; O2SAT 99; BMI 23.1
--- NOTE | 2023-05-24 15:46 | A.OFFPC_ITS ---
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 Allergies cat dander [CATS] Allergy (Mild, Verified 05/24/23 15:46) RUNNY NOSE lisinopril Allergy (Unknown, Verified 05/24/23 15:46) Coughing amlodipine Adverse Reaction (Intermediate, Verified 05/24/23 15:46) spots in eyes Medication List - Last Reconciled 05/24/23 by Jessenia Zhu MD loratadine 10 mg PO DAILY 90 days losartan 100 mg PO DAILY 30 days miscellaneous medical supply (Blood Pressure Cuff) As directed Tobacco use date assessed: 05/24/23 Fall risk assessment: No Falls in past year Last assessed Fall Risk: 05/24/23 HPI HTN, L renal calculi HPI Details 82-year-old male with hypertension and r enal calculus coming in for follow-up. Last seen in December 2022 review of the notes seen by the physician's assistant manager retail because of left-sided flank pain ultrasound was negative deny any urinary blood per declined colonoscopy. Patient also saw the urologist in March 2023 but did not feel the left flank pain is urology. Patient also had some sinus CT in December showing fani bowl boss a left for deviation of the nasal septum degenerative changes on the right temporomandibular joint mild sinonasal mucosal disease. PAteint decline Ct scan due to feeling better , BM isgood , no dysuria, no frequency, PFSH Medical History BPH (benign prostatic hyperplasia) Hypertension Memory deficit Partial small bowel obstruction Renal calculus Surgical History History of tonsillectomy History of testicular surgery Family History Father No problems noted. Mother No problems noted. Father No problems noted. Mother No problems noted. Social History Housing: Apartment Alcohol intake: current Alcohol intake frequency: a few times a month Patient Tobacco Use Status: Former Tobacco user Tobacco use type: Cigarette Years Smoked: quit 1980 e-Cigarette/Vaping Use: Never Used Second Hand Smoke Exposure: No service: No Current occupational status: retired Cognitive needs: No Hearing needs: No Vision needs: Yes Questionnaire Thrive Questionnaire Date Thrive assessed: 09/18/22 AUDIT C Alcohol Use Questionnaire (AUDIT-C) 1. How often do you have a drink containing alcohol?: Monthly or less 2. How many drinks containing alcohol do you have on a typical day when you are drinking?: 1 or 2 3. How often do you have six or more drinks on one occasion?: Never Total Score: 1 CORI-7 AMB Questionnaire CORI-7 Date CORI - 7 assessed: 09/18/22 Source: Developed by Drs. Bill De Anda, Marialuisa Ma, Kevin Meadows and colleagues, with an educational ny from [employer]. Physical exam (Primary Care) Vital Signs: Last Vital Signs Pulse 72 05/24/23 15:46 BP 138/88 05/24/23 15:46 Pulse Ox 99 05/24/23 15:46 Oxygen Delivery Method Room Air 05/24/23 15:46 BMI result Body Mass Index 23.1 Tobacco/Smoking Status: Tobacco use Status Tobacco use date assessed 05/24/23 05/24/23 15:47 Patient Tobacco Use Status Former Tobacco user 05/24/23 15:47 Tobacco use type Cigarette 05/24/23 15:47 e-Cigarette/Vaping Use Never Used 05/24/23 15:47 Thrive Assessment: Date of Thrive Assessment Date Thrive assessed 09/18/22 05/24/23 15:47 Const General: alert; No acute distress Eyes Conjunctivae: conjunctivae normal Resp Auscultation: clear to auscultation bilaterally Cardio Rate: regular rate Rhythm: regular rhythm GI Inspection: Yes normal to inspection Extrem General: Yes normal to inspection and No edema Assessment and Plan Assessment & Plan (1) Weight loss: Code(s): R63.4 - Abnormal weight loss Plan: This has stabilized (2) Flank pain: Comment: LEFT Code(s): R10.9 - Unspecified abdominal pain Plan: Workup so far has been negative. A CT scan was requested (3) Hypertension: Code(s): I10 - Essential (primary) hypertension Qualifiers: Hypertension type: essential hypertension Qualified Code(s): I10 - Essential (primary) hypertension Plan: Continue with blood pressure medication. Decrease salt intake and exercise patient on losartan hydrochlorothiazide (4) BPH (benign prostatic hyperplasia): Code(s): N40.0 - Benign prostatic hyperplasia without lower urinary tract symptoms Qualifiers: Lower urinary tract symptom detail: urinary frequency Lower urinary tract symptom presence: symptoms present Qualified Code(s): N40.1 - Benign prostatic hyperplasia with lower urinary tract symptoms; R35.0 - Frequency of micturition Plan: Stable Coding Level of Care Code Est Pt Level 4 (52226) Diagnoses Weight loss R63.4 Flank pain R10.9 Essential hypertension I10 Hypertension type: essential hypertension Benign prostatic hyperplasia with urinary frequency N40.1; R35.0 Lower urinary tract symptom detail: urinary frequency Lower urinary tract symptom presence: symptoms present
== END 2023-05-24 16:28 | disposition home or self-care (01) ==
PROVIDERS: PCP Internal Medicine; Visit Provider Internal Medicine
DX: R63.4 Abnormal weight loss (principal); R10.9 Unspecified abdominal pain; I10 Essential (primary) hypertension; N40.1 Benign prostatic hyperplasia with lower urinary tract symptoms; R35.0 Frequency of micturition
CPT/HCPCS: 99214

== ENCOUNTER 2023-11-30 09:54 | Outpatient (AMB) | payer OTHER, SELFPAY ==
[2023-11-30 10:01] VITALS: BP 152/98; PULSE 78; O2SAT 98; BMI 25.3
--- NOTE | 2023-11-30 10:01 | A.OFFPC_ITS ---
Vital Signs 11/30/23 10:01 Height 5 ft 6 in Weight 157 lb BMI 25.3 BP 152/98 H Blood Pressure Location Lt brachial Position Sitting Pulse 78 Pulse Source Pulse Oximeter Pulse Oximetry (%) 98 Oxygen Delivery Method Room Air Intake Visit Reasons: pe Intake Note: Patient stopped the losartan and noticed his eye sight has gotten better. Allergies cat dander [CATS] Allergy (Mild, Verified 11/30/23 10:01) RUNNY NOSE lisinopril Allergy (Unknown, Verified 11/30/23 10:01) Coughing amlodipine Adverse Reaction (Intermediate, Verified 11/30/23 10:01) spots in eyes losartan Adverse Reaction (Intermediate, Unverified 11/30/23 10:39) vision problem Medication List - Last Reconciled 11/30/23 by Jessenia Zhu MD loratadine 10 mg PO DAILY 90 days metoprolol succinate ER 25 mg PO DAILY miscellaneous medical supply (Blood Pressure Cuff) As directed Tobacco use date assessed: 11/30/23 Fall risk assessment: No Falls in past year Last assessed Fall Risk: 11/30/23 Dental Screening Dental Screen Date: 11/30/23 Did you have a dental visit in the last 12 months?: Yes Did you have a dental problem in the last 6 months where you did not have access to dental care?: No Was dental information given to patient?: Patient has dentist HPI pe HPI Details 83-year-old male with hypertension and B PH coming in for physical exam last seen in May 2023. Patient has declined colonoscopy. Noted 14 lb weight gain. occ dizzy. need TB test [facility] Medical History BPH (benign prostatic hyperplasia) Hypertension Memory deficit Partial small bowel obstruction Renal calculus Surgical History History of tonsillectomy History of testicular surgery Family History Father No problems noted. Mother No problems noted. Father No problems noted. Mother No problems noted. Social History (Updated 11/30/23 @ 10:44 by Jessenia Zhu MD) Housing: Apartment Alcohol intake: current Alcohol intake frequency: a few times a month Comment: once Q month 1 beer Patient Tobacco Use Status: Former Tobacco user Tobacco use type: Cigarette Years Smoked: quit 1980 e-Cigarette/Vaping Use: Never Used Second Hand Smoke Exposure: No service: No Current occupational status: retired Cognitive needs: No Hearing needs: No Vision needs: Yes Questionnaire PHQ-9 Over the last 2 weeks, how often have you been bothered by any of the following problems? 1. Little interest or pleasure in doing things: not at all 2. Feeling down, depressed, or hopeless: not at all 3. Trouble falling or staying asleep, or sleeping too much: not at all 4. Feeling tired or having little energy: not at all 5. Poor appetite or overeating: not at all 6. Feeling bad about yourself - or that you are a failure or have let yourself or your family down: not at all 7. Trouble concentrating on things, such as reading the newspaper or watching television: not at all 8. Moving or speaking so slowly that other people could have noticed. Or the opposite - being so fidgety or restless that you have been moving around a lot more than usual: not at all 9. Thoughts that you would be better off or of hurting yourself in some way: not at all Total score: 0 Depression Screening Interpretation: Negative Depression Screening Done: Yes Source: Developed by Drs. Bill De Anda, Marialuisa Ma, Kevin Meadows and colleagues, with an educational ny from [employer]. Thrive Questionnaire Date Thrive assessed: 11/30/23 I am a: Patient What is your living situation today?: I have a steady place to live Within the past 12 months, did the food you bought not last and you didn't have the money to get more?: Never true Within the past 12 months, did you worry whether your food would run out before you got money to buy more?: Never true Do you have trouble paying for medicines?: No Do you have trouble getting transportation to medical appointments?: No Do you have trouble paying your heating and electricity bill?: No Do you have trouble taking care of your child, family member or friend?: No Do you have trouble with day-to-day activities such as bathing, preparing meals, shopping, managing finances, etc.?: No Are you currently unemployed and looking for a job?: No Are you interested in more education?: No Currently or been in a relationship where the following occur: no concerns reported THRIVE Score: 0 AUDIT C Alcohol Use Questionnaire (AUDIT-C) 1. How often do you have a drink containing alcohol?: Monthly or less 2. How many drinks containing alcohol do you have on a typical day when you are drinking?: 1 or 2 3. How often do you have six or more drinks on one occasion?: Never Total Score: 1 CORI-7 AMB Questionnaire CORI-7 Date CORI - 7 assessed: 09/18/22 Source: Developed by Drs. Bill De Anda, Marialuisa Ma, Kevin Meadows and colleagues, with an educational ny from [employer]. Review of Systems Const Denies poor appetite and Denies weakness Eyes Denies no additional complaints ENT Reports Normal hearing present, Denies dizziness, Denies nasal congestion, Denies tinnitus and Denies sore throat Card Denies chest pain, Denies syncope, Denies rapid heart rate and Denies dyspnea Resp Denies cough and Denies dyspnea GI Denies change in stool character, Reports constipation, Denies diarrhea, Denies nausea and Denies vomiting Denies dysuria and Denies urinary frequency Neuro Reports Normal hearing present, Denies confusion, Denies dizziness, Denies syncope and Denies weakness Psych Denies confusion Physical exam (Primary Care) Vital Signs: Last Vital Signs Pulse 78 11/30/23 10:01 BP 152/98 H 11/30/23 10:01 Pulse Ox 98 11/30/23 10:01 Oxygen Delivery Method Room Air 11/30/23 10:01 BMI result Body Mass Index 25.3 Tobacco/Smoking Status: Tobacco use Status Tobacco use date assessed 11/30/23 11/30/23 10:04 Patient Tobacco Use Status Former Tobacco user 11/30/23 10:04 Tobacco use type Cigarette 11/30/23 10:04 e-Cigarette/Vaping Use Never Used 11/30/23 10:04 PHQ-9: PHQ-9 Score PHQ-9: Total score 0 11/30/23 10:22 Depression Screening Interpretation: Negative Thrive Assessment: Date of Thrive Assessment Date Thrive assessed 11/30/23 11/30/23 10:04 Currently or been in a relationship where the following occur: no concerns reported Const General: No confusion Orientation/consciousness: No confusion HENMT Head: Yes normocephalic Ears: external ears normal and TM's normal bilaterally Face and sinus: Yes normal facial exam Mouth: moist mucous membranes Throat: Yes tonsils normal Eyes Conjunctivae: conjunctivae normal Pupils: Equal, round and reactive pupils present and Pupil accommodation reflex normal Direct Ophthalmoscopy: normal light reflex Neck Neck: No lymphadenopathy Thyroid: Thyroid normal Chest Chest palpation & inspection: normal inspection of the chest Resp Effort & Inspection: normal respiratory effort and no audible wheezes Auscultation: clear to auscultation bilaterally, no crackles, no wheezes and lung sounds not diminished Cardio Rate: regular rate Rhythm: regular rhythm Peripheral pulses: radial pulses present and dorsalis pedis present GI Other: declined Palpation (GI): no masses Auscultation: normal bowel sounds and normoactive bowel sounds Rectal Exam - Male: Yes deferred Male General Exam: Yes normal external exam Skin General skin exam: no rashes or lesions noted Rashes: no rashes Neuro General: No confusion Cranial nerves: Yes Equal, round and reactive pupils present and Yes Normal hearing present Cognition (Neuro): normal cognition Gait exam (Neuro): Normal gait present Motor exam (neuro): 5/5 motor strength present throughout Deep tendon reflexes (DTR's): Right brachioradialis reflex intensity grade: 2+, Left brachioradialis reflex intensity grade: 2+, Right patellar reflex intensity grade: 2+ and Left patellar reflex intensity grade: 2+ Extrem General: No edema Assessment and Plan Assessment & Plan (1) Annual physical exam: Code(s): Z00.00 - Encounter for general adult medical examination without abnormal findings (2) Hypertension: Code(s): I10 - Essential (primary) hypertension Qualifiers: Hypertension type: essential hypertension Qualified Code(s): I10 - Essential (primary) hypertension Plan: Patient not presently on any medication. Advised to decrease salt intake. (3) BPH (benign prostatic hyperplasia): Code(s): N40.0 - Benign prostatic hyperplasia without lower urinary tract symptoms Qualifiers: Lower urinary tract symptom presence: symptoms present Lower urinary tract symptom detail: urinary frequency Qualified Code(s): N40.1 - Benign prostatic hyperplasia with lower urinary tract symptoms; R35.0 - Frequency of micturition Plan: Stable continue to follow-up (4) Anemia: Code(s): D64.9 - Anemia, unspecified Qualifiers: Anemia type: other cause Other causes of anemia: other cause, not classified Qualified Code(s): D64.89 - Other specified anemias Plan: Patient is advised to get blood work done. (5) Onychomycosis: Code(s): B35.1 - Tinea unguium Plan: lamisil prescrition sent . dicsussed about side effects on liver. liver test 1 month after Orders: Orders Complete Blood Count Auto Diff Today D64.89 - Other specified anemias Reticulocyte Count Today D64.89 - Other specified anemias Lipid Panel Today D64.89 - Other specified anemias, E78.00 - Pure hypercholesterolemia, unspecified Comprehensive Met. Panel Today D64.89 - Other specified anemias Free T4 (Free Thyroxine) Today D64.89 - Other specified anemias Thyroid Stimulating Hormone Today D64.89 - Other specified anemias IRON PROFILE Today D64.89 - Other specified anemias Vitamin B12 and Folate Today D64.89 - Other specified anemias T Spot TB Today Z00.00 - Encounter for general adult medical examination without abnormal findings Medications: New metoprolol succinate ER 25 mg PO DAILY 30 tabs 3RF I10 - Essential (primary) hypertension terbinafine HCl 250 mg PO DAILY 12 weeks 84 tabs 1RF B35.1 - Tinea unguium Coding Level of Care Code Est Pt Prev Care >65y(99897) Diagnoses Annual physical exam Z00.00 Essential hypertension I10 Hypertension type: essential hypertension Benign prostatic hyperplasia with urinary frequency N40.1; R35.0 Lower urinary tract symptom presence: symptoms present Lower urinary tract symptom detail: urinary frequency Anemia due to other cause, not classified D64.89 Anemia type: other cause Other causes of anemia: other cause, not classified Onychomycosis B35.1
== END 2023-11-30 11:04 | disposition home or self-care (01) ==
PROVIDERS: PCP Internal Medicine; Visit Provider Internal Medicine
DX: Z00.00 Encounter for general adult medical examination without abnormal findings (principal); I10 Essential (primary) hypertension; N40.1 Benign prostatic hyperplasia with lower urinary tract symptoms; R35.0 Frequency of micturition; D64.89 Other specified anemias; B35.1 Tinea unguium
CPT/HCPCS: 99397

== ENCOUNTER 2023-11-30 11:08 | Outpatient (REF) | payer OTHER, SELFPAY ==
[2023-11-30 11:30] LABS: MANUAL DIFF FLAG NO
[2023-11-30 12:45] LABS: Basophils Percent Auto 0.5 % (0-2); Eosinophils Absolute Auto 0.3 X10*3/uL (0.0-0.4); Eosinophils Percent Auto 3.4 % (0-4); Hematocrit 44.9 % (42.0-52.0); Hemoglobin 15.2 g/dl (14.0-18.0); Imm Gran Abs Auto 0.02 X10*3/uL (0.00-0.03); Imm Gran Pct Auto 0.3 % (0.0-0.4); Immature Retic Fraction 15.4 % (2.3-13.4); Lymphocytes Absolute Auto 2.6 X10*3/uL (1.2-4.9); Lymphocytes Percent Auto 35.4 % (20-40); Mean Corpuscular HGB Conc 33.9 g/dl (31.0-36.0); Mean Corpuscular Hemoglobin 32.8 pg (27.0-33.0); Mean Corpuscular Volume 96.8 fL (80.0-98.0); Mean Platelet Volume 9.8 fL (9.4-12.4); Monocytes Absolute Auto 0.7 X10*3/uL (0.1-1.2); Monocytes Percent Auto 9.1 % (2-11); Neutrophils Absolute Auto 3.8 x10*3/uL (2.0-8.3); Neutrophils Percent Auto 51.3 % (45-73); Platelet Count 229 X10*3/uL (160-400); Red Blood Count 4.64 X10*6/uL (4.60-5.80); Red Cell Distribution Width 13.2 % (11.0-16.0); Retic HGB Equivalent 35.8 pg (30.0-35.0); Reticulocyte Percent 1.7 % (0.5-1.8); White Blood Count 7.4 X10*3/uL (4.8-10.8)
[2023-11-30 13:17] LABS: Alanine Aminotransferase 21 U/L (0-40); Albumin Level 4.1 g/dL (3.5-5.0); Alkaline Phosphatase 67 U/L (39-117); Anion Gap 9 (12-20); Aspartate Amino Transferase 25 U/L (5-37); Bilirubin Total 0.5 mg/dL (0.0-1.0); Blood Urea Nitrogen 20 mg/dL (9-16); Calcium 9.3 mg/dL (8.4-10.2); Carbon Dioxide 29 mmol/L (22-29); Chloride 109 mmol/L (96-108); Cholesterol 162 mg/dL (<200); Estimated Glomerular Filt Rate > 60; Glucose Random 83 mg/dL (60-115); HDL Cholesterol 36 mg/dL (>40); Iron 120 mcg/dL (45-160); LDL Cholesterol Calculated 72 mg/dL (<100); Percent Iron Saturation 46 % (15-50); Sodium 143 mmol/L (135-145); Total Iron Binding Capacity 259 mcg/dL (228-428); Total Protein 7.2 g/dL (6.5-8.0); Triglycerides 271 mg/dL (<150); Unsaturated Iron Binding 139 ug/dL
[2023-11-30 13:34] LABS: Thyroid Stimulating Hormone 1.91 uIU/mL (0.32-4.0)
[2023-11-30 13:36] LABS: Folate 10.9 ng/mL (> or = 4.0); Vitamin B12 477 pg/mL (200-900)
[2023-12-03 10:48] LABS: TS Negative Control Passed; TS Panel A 6; TS Panel B 3; TS Positive Control Passed; TSpotTB Borderline (Negative)
== END 2023-11-30 11:09 | disposition home or self-care (01) ==
LOC: HO.LAB 11:08
PROVIDERS: PCP Internal Medicine; Visit Provider Internal Medicine
DX: Z00.00 Encounter for general adult medical examination without abnormal findings (principal); D64.89 Other specified anemias; E78.00 Pure hypercholesterolemia, unspecified
CPT/HCPCS: 36415; 80053; 80061; 82607; 82746; 83540; 84439; 84443; 85025; 85045; 86481

== ENCOUNTER 2024-02-14 07:49 | Outpatient (AMB) | payer OTHER, SELFPAY ==
[2024-02-14 07:55] VITALS: BP 106/80; PULSE 73; O2SAT 97; BMI 23.4
--- NOTE | 2024-02-14 07:55 | A.OFFPC_ITS ---
Vital Signs 02/14/24 07:55 Height 5 ft 6 in Weight 145 lb 0.6 oz BMI 23.4 BP 106/80 Blood Pressure Location Lt brachial Position Sitting Pulse 73 Pulse Source Pulse Oximeter Pulse Oximetry (%) 97 Oxygen Delivery Method Room Air Intake Visit Reasons: [facility] 02/17 cataract surgery Intake Note: Patient is here for a Pre-op for cataract surgery scheduled with [provider name ] on 02/18/2024 Senior Specialist Required: No Allergies cat dander [CATS] Allergy (Mild, Verified 02/14/24 08:03) RUNNY NOSE lisinopril Allergy (Unknown, Verified 02/14/24 08:03) Coughing amlodipine Adverse Reaction (Intermediate, Verified 02/14/24 08:03) spots in eyes losartan Adverse Reaction (Intermediate, Verified 02/14/24 08:03) vision problem metoprolol Adverse Reaction (Intermediate, Verified 02/14/24 08:03) dizziness Medication List - Last Reconciled 02/14/24 by Griselda Ellsworth PA-C hydrochlorothiazide 12.5 mg PO DAILY miscellaneous medical supply (Blood Pressure Cuff) As directed terbinafine HCl 250 mg PO DAILY 12 weeks Tobacco use date assessed: 11/30/23 Fall risk assessment: No Falls in past year Last assessed Fall Risk: 02/14/24 Dental Screening Dental Screen Date: 11/30/23 HPI [facility] 02/17 cataract surgery HPI Details 83-year-old male with past medical histo ry of BPH, hypertension, and memory impairment last seen by Dr. Zhu for 11/30/2023 coming in for pre op right eye cataract surgery 02/18/2024. Patient will have the second eye done but unsure of date. Patient does not have any major comorbidities, does not take any disease modifying drugs and is not using NSAIDs or anticoagulation. Patient has had anesthesia and procedures in the past without difficulty or complication. He has no concerns today. [facility] Medical History Partial small bowel obstruction BPH (benign prostatic hyperplasia) Memory deficit Renal calculus Hypertension Surgical History History of tonsillectomy History of testicular surgery Family History Father No problems noted. Mother No problems noted. Father No problems noted. Mother No problems noted. Social History Housing: Apartment Alcohol intake: current Alcohol intake frequency: a few times a month Comment: once Q month 1 beer Patient Tobacco Use Status: Former Tobacco user Tobacco use type: Cigarette Years Smoked: quit 1980 e-Cigarette/Vaping Use: Never Used Second Hand Smoke Exposure: No service: No Current occupational status: retired Cognitive needs: No Hearing needs: No Vision needs: Yes Questionnaire Thrive Questionnaire Date Thrive assessed: 11/30/23 AUDIT C Alcohol Use Questionnaire (AUDIT-C) 1. How often do you have a drink containing alcohol?: Monthly or less 2. How many drinks containing alcohol do you have on a typical day when you are drinking?: 1 or 2 3. How often do you have six or more drinks on one occasion?: Never Total Score: 1 CORI-7 AMB Questionnaire CORI-7 Date CORI - 7 assessed: 09/18/22 Source: Developed by Drs. Bill De Anda, Marialuisa Ma, Kevin Meadows and colleagues, with an educational ny from [employer]. Review of Systems Const Denies body aches, Denies chills, Denies fever(s) and Denies weakness Eyes Reports no additional complaints ENT Reports Normal hearing present and Denies nasal congestion Card Denies chest pain, Denies syncope, Denies pedal edema, Denies irregular heart rhythm, Denies leg edema, Denies lightheadedness and Denies dyspnea Resp Denies cough and Denies dyspnea GI Denies change in stool character, Denies constipation, Denies diarrhea, Denies nausea and Denies vomiting Denies dysuria and Denies urinary frequency Musc Reports no additional complaints Skin/Breast Reports system reviewed and no additional complaints, except as documented Neuro Reports Normal hearing present, Denies syncope and Denies weakness Psych Reports no additional complaints Physical exam (Primary Care) Vital Signs: Oxygen Delivery Method Room Air 02/14/24 07:55 Tobacco/Smoking Status: Tobacco use Status Tobacco use date assessed 11/30/23 11/30/23 10:04 Patient Tobacco Use Status Former Tobacco user 11/30/23 10:44 Tobacco use type Cigarette 11/30/23 10:44 e-Cigarette/Vaping Use Never Used 11/30/23 10:44 Thrive Assessment: Date of Thrive Assessment Date Thrive assessed 11/30/23 11/30/23 10:04 Const General: cooperative, healthy appearing, comfortable and no acute distress Nutritional Appearance: average body habitus Orientation/consciousness: patient oriented x3 Limitations: no limitations HENMT Head: Yes normal to inspection Ears: hearing grossly normal bilaterally Eyes General: appearance normal, both eyes and all related structures Conjunctivae: conjunctivae normal Neck Neck: Yes normal visual inspection, Yes full ROM and Yes no lymphadenopathy Resp Effort & Inspection: normal respiratory effort Auscultation: clear to auscultation bilaterally, no crackles, no rales, no rhonchi and no wheezes Cardio Rate: regular rate Rhythm: regular rhythm Heart sounds: S1 normal heart sound present and S2 normal heart sound present Peripheral pulses: radial pulses present GI Inspection: Yes normal to inspection Skin General skin exam: no rashes or lesions noted Neuro General: patient oriented x3 and gait normal Cranial nerves: Yes Normal hearing present Extrem General: Yes normal to inspection, Yes full ROM and No edema Psych Insight: Good insight present (Psych) Judgement: Good judgement present (Psych) Assessment and Plan Assessment & Plan (1) Pre-op evaluation: Code(s): Z01.818 - Encounter for other preprocedural examination Plan: Patient has planned right eye cataract surgery 02/18/2024. Labs are up-to-date 11/27/2023 and within normal limits. Patient does not report any concerns at this time, hypertension is well managed and blood pressure is at goal today 106/80. Instructed patient to avoid NSAIDs prior to surgery. Patient to take his blood pressure medication on day of the procedure and can hold other medications until after the procedure. Patient does not have history of diabetes mellitus, CVA, IN or CHF. Regarding preop clearance, the patient is at moderate risk for proposed surgery due to age.?Reviewed with the patient that no surgery is completely free of risk and that this examination is to assist the surgeon in reviewing informed consent. All questions were answered and patient agreed to reach out if other questions arise. Plan Thank you for allowing me to participate in the care of this patient. I personally spent 20 minutes reviewing, examining and charting on this patient. Coding Level of Care Code Est Pt Level 3 (43911) Diagnoses Pre-op evaluation Z01.818
== END 2024-02-14 08:19 | disposition home or self-care (01) ==
PROVIDERS: PCP Internal Medicine
DX: Z01.818 Encounter for other preprocedural examination (principal)
CPT/HCPCS: 99213

== ENCOUNTER 2024-02-25 10:03 | Emergency (ER) | payer OTHER, SELFPAY ==
[2024-02-25 10:07] VITALS: BP 139/75; PULSE 67; RESP 18; TEMP 36.6; O2SAT 98; BMI 21.9
[2024-02-25 11:15] LABS: MANUAL DIFF FLAG NO
[2024-02-25 11:17] LABS: Appearance Urine Cloudy; Basophils Percent Auto 0.3 % (0-2); Eosinophils Percent Auto 0.3 % (0-4); Glucose Urine UA Negative (Negative); Hematocrit 43.3 % (42.0-52.0); Hemoglobin 14.9 g/dl (14.0-18.0); Imm Gran Abs Auto 0.03 X10*3/uL (0.00-0.03); Imm Gran Pct Auto 0.4 % (0.0-0.4); Leukocyte Esterase Urine Moderate (2+) (Negative); Lymphocytes Absolute Auto 1.1 X10*3/uL (1.2-4.9); Lymphocytes Percent Auto 14.8 % (20-40); Mean Corpuscular HGB Conc 34.4 g/dl (31.0-36.0); Mean Corpuscular Hemoglobin 32.8 pg (27.0-33.0); Mean Corpuscular Volume 95.4 fL (80.0-98.0); Mean Platelet Volume 9.2 fL (9.4-12.4); Monocytes Absolute Auto 0.5 X10*3/uL (0.1-1.2); Monocytes Percent Auto 6.7 % (2-11); Neutrophils Absolute Auto 5.9 x10*3/uL (2.0-8.3); Neutrophils Percent Auto 77.5 % (45-73); Nitrite Urine Positive (Negative); PH 6.5 (5.0-9.0); Platelet Count 157 X10*3/uL (160-400); Red Blood Count 4.54 X10*6/uL (4.60-5.80); Red Cell Distribution Width 13.2 % (11.0-16.0); Specific Gravity - Urine 1.025 (1.005-1.025); UMIC TRIGGER UACC YES; Urine Blood Large (3+) (Negative); Urine Ketones Trace mg/dL (Negative); Urine Protein 100 (2+) mg/dL (Neg-Trace); White Blood Count 7.6 X10*3/uL (4.8-10.8)
[2024-02-25 11:20] LABS: Bacteria Urine Trace (None Seen); Hyaline Casts Urine 0-2 /LPF (0-2); RBC Urine >20 /HPF (0-2); UACC Culture Trigger YES; WBC Urine >50 /HPF (0-5)
--- NOTE | 2024-02-25 11:27 | PC.NURSE ---
attempted to obtain ekg on pt prior to medication administration but pt was not able stay still/follow commands. multiple attempts made but unsuccessful. dr. mello notified/aware. per dr. mello order - medication administered before another attempt at obtaining ekg. multiple attempts made at obtaining ekg for a second time but unsuccessful. pt continues to thrash body around and not follow commands. provider notified/aware.
--- NOTE | 2024-02-25 11:29 | MHC.EDTECH ---
bladder scan performed on pt to rule out bladder retention. 0mL of urine was detected, Rn made aware. Pt did also urinate prior to bladder scan.
[2024-02-25 11:50] LABS: Anion Gap 13 (12-20); Blood Urea Nitrogen 22 mg/dL (9-16); Carbon Dioxide 27 mmol/L (22-29); Chloride 104 mmol/L (96-108); Creatinine Clr Calc Pharmacy 39.7; Estimated Glomerular Filt Rate 53; Potassium 3.5 mmol/L (3.3-5.1); Sodium 140 mmol/L (135-145)
[2024-02-25 11:51] LABS: Alanine Aminotransferase 13 U/L (0-40); Albumin Level 4.4 g/dL (3.5-5.0); Alkaline Phosphatase 50 U/L (39-117); Aspartate Amino Transferase 22 U/L (5-37); Calcium 9.7 mg/dL (8.4-10.2); Glucose Random 98 mg/dL (60-115); Total Protein 7.6 g/dL (6.5-8.0)
--- NOTE | 2024-02-25 12:29 | ED_ITS ---
HPI - Male Genitourinary General Chief complaint: Urogenital-Male Stated complaint: Blood In Urine Time Seen by Provider: 02/25/24 11:21 Source: patient Mode of arrival: ambulatory History of Present Illness ED Provider: Dr Wise [facility] Narrative: 83-year-old male who presents with dysuria and urinary frequency since yesterday but denies any fever, chills, nausea, vomiting. Related Data Previous Rx's ?Medication ?Instructions ?Recorded miscellaneous medical supply #1 ea 04/14/23 (Blood Pressure Cuff) terbinafine HCl 250 mg tablet 250 mg PO DAILY 12 weeks #84 tabs 11/30/23 hydrochlorothiazide 12.5 mg tablet 12.5 mg PO DAILY #30 tabs 12/07/23 cefdinir 300 mg capsule 300 mg PO BID 7 days #14 caps 02/25/24 Allergies Allergy/AdvReac Type Severity Reaction Status Date / Time cat dander [CATS] Allergy Mild RUNNY NOSE Verified 02/25/24 10:09 lisinopril Allergy Unknown Coughing Verified 02/25/24 10:09 amlodipine AdvReac Intermediate spots in Verified 02/25/24 10:09 eyes losartan AdvReac Intermediate vision Verified 02/25/24 10:09 problem metoprolol AdvReac Intermediate dizziness Verified 02/25/24 10:09 Review of Systems 2 Review of Systems: Pertinent positives and negatives as stated in [facility] Past Medical History Source: nursing notes reviewed Medical History Partial small bowel obstruction BPH (benign prostatic hyperplasia) Memory deficit Renal calculus Hypertension Surgical History History of tonsillectomy History of testicular surgery Family History Family History Father No problems noted. Mother No problems noted. Father No problems noted. Mother No problems noted. Social History Social History Housing: Apartment Alcohol intake: current Alcohol intake frequency: a few times a month Comment: once Q month 1 beer Patient Tobacco Use Status: Former Tobacco user Tobacco use type: Cigarette Years Smoked: quit 1980 e-Cigarette/Vaping Use: Never Used Second Hand Smoke Exposure: No Advance Directives: No Advance Directives Information Provided: Yes service: No Current occupational status: retired Cognitive needs: No Hearing needs: No Vision needs: Yes Physical Exam 2 Vital Signs: Vital Signs: Last Vital Signs Temp 98 F 02/25/24 10:07 Pulse 67 02/25/24 10:07 Resp 18 02/25/24 10:07 BP 139/75 02/25/24 10:07 Pulse Ox 98 02/25/24 10:07 O2 Del Method Room Air 02/25/24 10:07 BMI result Body Mass Index 21.9 VITAL SIGNS: Reviewed. GENERAL: Well developed, well nourished, in no acute distress. HEAD: Normocephalic/atraumatic EYES: PERRLA, EOMI EARS: Ext canals without abnormality NOSE: Nares patent bilateral OROPHARYNX: no oral lesions noted, posterior pharynx clear NECK: Supple, no adenopathy LUNGS: Normal breath sounds. No adventitious sounds or accessory muscle use. SpO2<98> CARDIOVASCULAR: Regular rate and rhythm without noted murmurs ABDOMEN: Soft, non-tender, non-distended with bowel sounds. MUSCULOSKELETAL: No tenderness, deformities, or effusions noted on gross inspection. EXTREMITIES: No cyanosis, clubbing or edema. SKIN: Inspection of the skin reveals no rashes NEUROLOGIC: Alert and oriented x 4. Strength and sensation to light touch were grossly intact x 4. Medical Decision Making Medical Decision Making [facility] Narrative: 83-year-old male with history and clinical presentation, DDX: Urinary retention, UTI, low clinical suspicion for renal colic I reviewed all investigations and hematologic indices are negative for leukocytosis/anemia is a mild thrombocytopenia. Chemistry indices are negative for RAFAEL/electrolyte/liver enzyme derangements. Urinalysis is significantly positive for urinary tract infection. Patient will receive initial antibiotics here and be discharged on remaining course Differential Diagnosis Differential Diagnoses: The differential diagnosis associated with the presentation includes Please see the discussion above Admission/Observation Consideration of admission/observation: Escalation of care including admission/observation considered Please see the discussion above Lab Data MDM Lab Attestation statement: I reviewed the patient's lab results. Please see the discussion above 02/25/24 11:09 02/25/24 11:09 Labs: Lab Results 02/25/24 Range/Units 11:09 WBC 7.6 (4.8-10.8) X10*3/uL RBC 4.54 L (4.60-5.80) X10*6/uL Hgb 14.9 (14.0-18.0) g/dl Hct 43.3 (42.0-52.0) % MCV 95.4 (80.0-98.0) fL MCH 32.8 (27.0-33.0) pg MCHC 34.4 (31.0-36.0) g/dl RDW 13.2 (11.0-16.0) % Plt Count 157 L D (160-400) X10*3/uL MPV 9.2 L (9.4-12.4) fL Immature Gran % (Auto) 0.4 (0.0-0.4) % Neut % (Auto) 77.5 H (45-73) % Lymph % (Auto) 14.8 L (20-40) % [place] % (Auto) 6.7 (2-11) % Eos % (Auto) 0.3 (0-4) % Baso % (Auto) 0.3 (0-2) % Lymph # (Auto) 1.1 L (1.2-4.9) X10*3/uL [place] # (Auto) 0.5 (0.1-1.2) X10*3/uL Eos # (Auto) 0.0 (0.0-0.4) X10*3/uL Baso # (Auto) 0.0 (0.0-0.2) X10*3/uL Abs Immat Gran (auto) 0.03 (0.00-0.03) X10*3/uL Absolute Neuts (auto) 5.9 (2.0-8.3) x10*3/uL Absolute Nucleated RBC 0.000 (0.0-0.012) X10*3/uL Nucleated RBC % (auto) 0.0 (0.0-0.2) /100WBC Sodium 140 (135-145) mmol/L Potassium 3.5 (3.3-5.1) mmol/L Chloride 104 (96-108) mmol/L Carbon Dioxide 27 (22-29) mmol/L Anion Gap 13 (12-20) BUN 22 H (9-16) mg/dL Creatinine 1.30 (0.5-1.4) mg/dL Estim Creat Clear Calc 39.7 Estimated GFR 53 Random Glucose 98 (60-115) mg/dL Calcium 9.7 (8.4-10.2) mg/dL Total Bilirubin 1.0 (0.0-1.0) mg/dL AST 22 (5-37) U/L ALT 13 (0-40) U/L Alkaline Phosphatase 50 (39-117) U/L Total Protein 7.6 (6.5-8.0) g/dL Albumin 4.4 (3.5-5.0) g/dL Urine Color Dk Yellow Urine Appearance Cloudy Urine pH 6.5 (5.0-9.0) Ur Specific [place] 1.025 (1.005-1.025) Urine Protein 100 (2+) H (Neg-Trace) mg/dL Urine Glucose (UA) Negative (Negative) mg/dL Urine Ketones Trace (Negative) mg/dL Urine Blood Large (3+) H (Negative) Urine Nitrite Positive H (Negative) Ur Leukocyte Esterase Moderate (2+) H (Negative) Urine RBC >20 H (0-2) /HPF Urine WBC >50 H (0-5) /HPF Ur Squamous Epith Cells 3-5 (0-2) /HPF Urine Bacteria Trace (None Seen) Hyaline Casts 0-2 (0-2) /LPF External Record Review External record reviewed: Outpatient record, Prior outpatient labs and Prior outpatient radiology Critical Care Time Critical Care Time Critical Care Time: Yes Total Critical Care Time: 30 Attestation: I personally attest to this time spent taking care of the patient. Discharge Plan Discharge Clinical Impression: Urinary tract infection Patient Disposition: Home, Self-Care Instructions: Urinary Tract Infection in Men (ED) Additional Instructions: Please complete entire course of antibiotics Prescriptions: New cefdinir 300 mg capsule 300 mg PO BID 7 Days Qty: 14 0RF No Action hydrochlorothiazide 12.5 mg tablet 12.5 mg PO DAILY Qty: 30 2RF (DME) Blood Pressure Cuff Misc See Rx Instructions .ROUTE .MEDSUPPLY Qty: 1 0RF Rx Instructions: As directed terbinafine HCl 250 mg tablet 250 mg PO DAILY 84 Days Qty: 84 1RF Referrals: Po,Jessenia Acharya MD [Primary Care Provider] - Print Language: Slovenian
[2024-02-25] MEDS: cefuroxime axetiL 500 MG TABLET PO (12:46)
--- NOTE | 2024-02-25 12:47 | PC.NURSE ---
medication administered per provider order.
[2024-02-25 12:48] VITALS: BP 139/75; PULSE 67; RESP 18; TEMP 36.6; O2SAT 98
== END 2024-02-25 12:48 | disposition home or self-care (01) ==
PROVIDERS: Emergency Provider Student in an Organized Health Care Education/Training Program; PCP Internal Medicine
DX: N39.0 Urinary tract infection, site not specified (principal); R30.0 Dysuria
CPT/HCPCS: 36415; 80053; 81001; 85025; 87086; 99282; 99283

== ENCOUNTER 2024-04-17 09:45 | Outpatient (AMB) | payer OTHER, SELFPAY ==
[2024-04-17 09:49] VITALS: BP 138/74; PULSE 72; O2SAT 95; BMI 21.3
--- NOTE | 2024-04-17 09:49 | A.OFFPC_ITS ---
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 Accompanied by: Self / Same As Patient Allergies cat dander [CATS] Allergy (Mild, Verified 04/17/24 09:49) RUNNY NOSE lisinopril Allergy (Unknown, Verified 04/17/24 09:49) Coughing amlodipine Adverse Reaction (Intermediate, Verified 04/17/24 09:49) spots in eyes losartan Adverse Reaction (Intermediate, Verified 04/17/24 09:49) vision problem metoprolol Adverse Reaction (Intermediate, Verified 04/17/24 09:49) dizziness Tobacco use date assessed: 11/30/23 Fall risk assessment: No Falls in past year Last assessed Fall Risk: 04/17/24 Dental Screening Dental Screen Date: 11/30/23 HPI HTN, onychomycosis HPI Details 83-year-old male with a history of small -bowel obstruction BPH hypertension nephrolithiasis peripheral neuropathy coming in for follow-up. Last seen for preoperative evaluation for cataract surgery in February. Patient has declined colonoscopy. Review of the notes in 02/26/2024 ER visit for UTI treated with cefdinir. Patient was advised CT scan in 05/28/2023 due to BPH but this was not done. [facility] Medical History Partial small bowel obstruction BPH (benign prostatic hyperplasia) Memory deficit Renal calculus Hypertension Surgical History History of tonsillectomy History of testicular surgery Family History Father No problems noted. Mother No problems noted. Father No problems noted. Mother No problems noted. Social History Housing: Apartment Alcohol intake: current Alcohol intake frequency: a few times a month Comment: once Q month 1 beer Patient Tobacco Use Status: Former Tobacco user Tobacco use type: Cigarette Years Smoked: quit 1980 e-Cigarette/Vaping Use: Never Used Second Hand Smoke Exposure: No service: No Current occupational status: retired Cognitive needs: No Hearing needs: No Vision needs: Yes Questionnaire PHQ-9 Over the last 2 weeks, how often have you been bothered by any of the following problems? 1. Little interest or pleasure in doing things: not at all 2. Feeling down, depressed, or hopeless: not at all 3. Trouble falling or staying asleep, or sleeping too much: not at all 4. Feeling tired or having little energy: not at all 5. Poor appetite or overeating: not at all 6. Feeling bad about yourself - or that you are a failure or have let yourself or your family down: not at all 7. Trouble concentrating on things, such as reading the newspaper or watching television: not at all 8. Moving or speaking so slowly that other people could have noticed. Or the opposite - being so fidgety or restless that you have been moving around a lot more than usual: not at all 9. Thoughts that you would be better off or of hurting yourself in some way: not at all Total score: 0 Depression Screening Interpretation: Negative Depression Screening Done: Yes Source: Developed by Drs. Bill De Anda, Marialuisa Ma, Kevin Meadows and colleagues, with an educational yn from [employer]. Thrive Questionnaire Date Thrive assessed: 11/30/23 AUDIT C Alcohol Use Questionnaire (AUDIT-C) 1. How often do you have a drink containing alcohol?: Monthly or less 2. How many drinks containing alcohol do you have on a typical day when you are drinking?: 1 or 2 3. How often do you have six or more drinks on one occasion?: Never Total Score: 1 CORI-7 AMB Questionnaire CORI-7 Date CORI - 7 assessed: 04/17/24 Feeling nervous, anxious, or on edge: 0 = Not at all Not being able to stop or control worryin = Not at all Worrying too much about different things: 0 = Not at all Trouble relaxin = Not at all Being so restless that it is hard to sit still: 0 = Not at all Becoming easily annoyed or irritable: 0 = Not at all Feeling afraid as if something awful might happen: 0 = Not at all Total CORI-7 score (0-4 normal; 5-9 mild; 10-14 moderate; 15-21 severe): 0 Source: Developed by Drs. Bill De Anda, Marialuisa Ma, Kevin Meadows and colleagues, with an educational ny from [employer]. CORI-7 Assessment Billing CORI-7 Assessment Tool: CORI-7 Assessment 10092 Physical exam (Primary Care) Vital Signs: Last Vital Signs Pulse 72 04/17/24 09:49 BP 138/74 04/17/24 09:49 Pulse Ox 95 04/17/24 09:49 Oxygen Delivery Method Room Air 04/17/24 09:49 BMI result Body Mass Index 21.3 Tobacco/Smoking Status: Tobacco use Status Tobacco use date assessed 11/30/23 04/17/24 09:54 Patient Tobacco Use Status Former Tobacco user 04/17/24 09:54 Tobacco use type Cigarette 04/17/24 09:54 e-Cigarette/Vaping Use Never Used 04/17/24 09:54 PHQ-9: PHQ-9 Score PHQ-9: Total score 0 04/17/24 09:54 Depression Screening Interpretation: Negative Thrive Assessment: Date of Thrive Assessment Date Thrive assessed 11/30/23 04/17/24 09:54 Const General: alert; No acute distress Eyes Conjunctivae: conjunctivae normal Resp Auscultation: clear to auscultation bilaterally Cardio Rate: regular rate Rhythm: regular rhythm GI Inspection: Yes normal to inspection Extrem General: Yes normal to inspection and No edema Assessment and Plan Assessment & Plan (1) Cataract: Comment: march, [place] Code(s): H26.9 - Unspecified cataract (2) UTI (urinary tract infection): Code(s): N39.0 - Urinary tract infection, site not specified Plan: Discussed my concerns about this patient regarding urinary tract infection and history of flank pain and history of renal calculi. Concern also about the weight loss. (3) Hypertension: Code(s): I10 - Essential (primary) hypertension Qualifiers: Hypertension type: essential hypertension Qualified Code(s): I10 - Essential (primary) hypertension Plan: Continue with blood pressure medication. Decrease salt intake and exercise on hydrochlorothiazide 12.5 mg once a day Orders: Orders Blood Urea Nitrogen Today N39.0 - Urinary tract infection, site not specified Complete Blood Count Auto Diff Today N39.0 - Urinary tract infection, site not specified Thyroid Stimulating Hormone Today N39.0 - Urinary tract infection, site not specified Comprehensive Met. Panel Today N39.0 - Urinary tract infection, site not specified CT abdomen pelvis w IV con Today N39.0 - Urinary tract infection, site not spec ified Creatinine Today N39.0 - Urinary tract infection, site not specified Free T4 (Free Thyroxine) Today N39.0 - Urinary tract infection, site not specified UA w Microscopic Today N39.0 - Urinary tract infection, site not specified Coding Level of Care Code Est Pt Level 4 (80762) Diagnoses Cataract H26.9 UTI (urinary tract infection) N39.0 Essential hypertension I10 Hypertension type: essential hypertension Additional Codes CORI-7 Assessment Billing - CORI-7 Assessment Tool: CORI-7 Assessment 43645 ([id number])
== END 2024-04-17 10:23 | disposition home or self-care (01) ==
PROVIDERS: PCP Internal Medicine; Visit Provider Internal Medicine
DX: H26.9 Unspecified cataract (principal); N39.0 Urinary tract infection, site not specified; I10 Essential (primary) hypertension
CPT/HCPCS: 99214

== ENCOUNTER 2024-04-17 10:30 | Outpatient (REF) | payer OTHER, SELFPAY ==
[2024-04-17 10:51] LABS: MANUAL DIFF FLAG NO
[2024-04-17 12:04] LABS: Basophils Percent Auto 0.5 % (0-2); Eosinophils Absolute Auto 0.2 X10*3/uL (0.0-0.4); Eosinophils Percent Auto 3.9 % (0-4); Hematocrit 40.4 % (42.0-52.0); Hemoglobin 14.1 g/dl (14.0-18.0); Imm Gran Abs Auto 0.02 X10*3/uL (0.00-0.03); Imm Gran Pct Auto 0.4 % (0.0-0.4); Lymphocytes Absolute Auto 2.1 X10*3/uL (1.2-4.9); Lymphocytes Percent Auto 36.3 % (20-40); Mean Corpuscular HGB Conc 34.9 g/dl (31.0-36.0); Mean Corpuscular Hemoglobin 33.6 pg (27.0-33.0); Mean Corpuscular Volume 96.2 fL (80.0-98.0); Mean Platelet Volume 10.2 fL (9.4-12.4); Monocytes Absolute Auto 0.4 X10*3/uL (0.1-1.2); Neutrophils Percent Auto 51.9 % (45-73); Platelet Count 182 X10*3/uL (160-400); Red Cell Distribution Width 14.2 % (11.0-16.0); White Blood Count 5.7 X10*3/uL (4.8-10.8)
[2024-04-17 12:29] LABS: Appearance Urine Clear; Color Urine Dark Yellow; Glucose Urine UA Negative (Negative); Leukocyte Esterase Urine Trace (Negative); Nitrite Urine Negative (Negative); UMIC TRIGGER UA YES; Urine Blood Negative (Negative); Urine Ketones Trace mg/dL (Negative); Urine Protein Trace mg/dL (Neg-Trace)
[2024-04-17 12:41] LABS: Bacteria Urine None Seen (None Seen); Hyaline Casts Urine 0-2 /LPF (0-2); RBC Urine 0-2 /HPF (0-2); Squamous Epithelial Cell Urine 0-2 /HPF (0-2); WBC Urine 0-5 /HPF (0-5)
[2024-04-17 12:55] LABS: Alanine Aminotransferase 14 U/L (0-40); Albumin Level 4.1 g/dL (3.5-5.0); Alkaline Phosphatase 64 U/L (39-117); Anion Gap 11 (12-20); Aspartate Amino Transferase 22 U/L (5-37); Bilirubin Total 0.6 mg/dL (0.0-1.0); Blood Urea Nitrogen 19 mg/dL (9-16); Calcium 9.6 mg/dL (8.4-10.2); Carbon Dioxide 28 mmol/L (22-29); Chloride 108 mmol/L (96-108); Estimated Glomerular Filt Rate > 60; Free T4 (Free Thyroxine) 0.96 ng/dL (0.71-1.85); Glucose Random 92 mg/dL (60-115); Potassium 3.4 mmol/L (3.3-5.1); Sodium 144 mmol/L (135-145); Thyroid Stimulating Hormone 1.59 uIU/mL (0.32-4.0)
[2024-04-20 06:38] LABS: TS Negative Control Passed; TS Panel A 15; TS Panel B 4; TS Positive Control Passed; TSpotTB Positive (Negative)
== END 2024-04-17 10:31 | disposition home or self-care (01) ==
LOC: HO.LAB 10:30
PROVIDERS: PCP Internal Medicine; Visit Provider Internal Medicine
DX: Z00.00 Encounter for general adult medical examination without abnormal findings (principal); N39.0 Urinary tract infection, site not specified
CPT/HCPCS: 36415; 80053; 81001; 84439; 84443; 85025; 86481

== ENCOUNTER 2024-07-25 14:47 | Outpatient (AMB) | payer OTHER, SELFPAY ==
--- NOTE | 2024-07-25 15:11 | A.OFFPC_ITS ---
Vital Signs 3 07/25/24 15:12 Height 5 ft 8 in Weight 139 lb 8 oz BMI 21.2 BP 130/82 Blood Pressure Location Lt brachial Position Sitting Pulse 68 Pulse Source Pulse Oximeter Pulse Oximetry (%) 98 Oxygen Delivery Method Room Air Intake Visit Reasons: UTI, Urinary incontinence Intake Note: Patient is here to follow up on Urinary incontinence. Pt decline decline flu shot today. Weaving Supervisor Required: No Medical Pathology Teacher: Not Required per policy Accompanied by: Self / Same As Patient Allergies cat dander [CATS] Allergy (Mild, Verified 07/25/24 15:12) RUNNY NOSE lisinopril Allergy (Unknown, Verified 07/25/24 15:12) Coughing amlodipine Adverse Reaction (Intermediate, Verified 07/25/24 15:12) spots in eyes losartan Adverse Reaction (Intermediate, Verified 07/25/24 15:12) vision problem metoprolol Adverse Reaction (Intermediate, Verified 07/25/24 15:12) dizziness Medication List - Last Reconciled 07/25/24 by Jessenia Zhu MD hydrochlorothiazide 12.5 mg PO DAILY loratadine 10 mg PO DAILY melatonin 3 mg PO BEDTIME PRN miscellaneous medical supply (Blood Pressure Cuff) As directed Tobacco use date assessed: 07/25/24 Fall risk assessment: No Falls in past year Last assessed Fall Risk: 07/25/24 Dental Screening Dental Screen Date: 11/30/23 HPI UTI, Urinary incontinence 2 HPI0 Details The patient is an 83-year-old male presenting with concerns related to a history of scrotal mass removal approximately 15 years ago. Initially, the left scrotal area underwent surgical intervention, but a mass was left, leading to intermittent discomfort over the years. The patient reports that while the discomfort has been present since surgery, it has recently escalated, though presently asymptomatic. Additionally, there is a history of hypertension management, and recent blood work indicated mild dehydration and hypokalemia, possibly attributed to blood pressure medication and reduced fluid intake due to concerns of frequent urination during walks. The patient consumes melatonin regularly, which he reports is effective, and occasionally takes an tlis-zut-ahcycox allergy medication likely to be Loratadine, though the specifics are unclear. Kidney function was assessed in April and appeared stable, with the patient having a history of kidney stones necessitating increased water intake to prevent recurrence. [facility] Medical History (Updated 07/25/24 @ 15:43 by Jessenia Zhu MD) Positive TB test Partial small bowel obstruction BPH (benign prostatic hyperplasia) Memory deficit Renal calculus Hypertension Surgical History History of tonsillectomy History of testicular surgery Family History Father No problems noted. Mother No problems noted. Father No problems noted. Mother No problems noted. Social History Housing: Apartment Alcohol intake: current Alcohol intake frequency: a few times a month Comment: once Q month 1 beer Patient Tobacco Use Status: Former Tobacco user Tobacco use type: Cigarette Years Smoked: quit 1980 e-Cigarette/Vaping Use: Never Used Second Hand Smoke Exposure: Yes service: No Current occupational status: retired Cognitive needs: No Hearing needs: No Vision needs: Yes Questionnaire Thrive Questionnaire Date Thrive assessed: 11/30/23 AUDIT C Alcohol Use Questionnaire (AUDIT-C) 3. How often do you have six or more drinks on one occasion?: Never Total Score: 0 CORI-7 AMB Questionnaire CORI-7 Date CORI - 7 assessed: 04/17/24 Source: Developed by Drs. Bill De Anda, Marialuisa Ma, Kevin Meadows and colleagues, with an educational ny from [employer]. Physical exam (Primary Care) Vital Signs: Last Vital Signs Pulse 68 07/25/24 15:12 BP 130/82 07/25/24 15:12 Pulse Ox 98 07/25/24 15:12 Oxygen Delivery Method Room Air 07/25/24 15:12 BMI result Body Mass Index 21.2 Tobacco/Smoking Status: Tobacco use Status Tobacco use date assessed 07/25/24 07/25/24 15:16 Patient Tobacco Use Status Former Tobacco user 07/25/24 15:16 Tobacco use type Cigarette 07/25/24 15:16 e-Cigarette/Vaping Use Never Used 07/25/24 15:16 Thrive Assessment: Date of Thrive Assessment Date Thrive assessed 11/30/23 07/25/24 15:16 Const General: alert; No acute distress Eyes Conjunctivae: conjunctivae normal Resp Auscultation: clear to auscultation bilaterally Cardio Rate: regular rate Rhythm: regular rhythm GI Inspection: Yes normal to inspection Male genitals images: 2 1. Tender on palpation of the left scrotum with no swelling no redness noted but noted to have significantly smaller left scrotum done the right scrotum. Extrem General: Yes normal to inspection and No edema Coding Level of Care Code Est Pt Level 4 (91339) Diagnoses Renal calculus N20.0 Essential hypertension I10 Hypertension type: essential hypertension Scrotal pain N50.82 Assessment & Plan Assessment & Plan (1) Renal calculus: Comment: Right 05/2021, L 04/2022 Code(s): N20.0 - Calculus of kidney Category: Medical Plan: Patient was advised to have adequate hydration to prevent kidney stone since patient has a history of this. (2) Hypertension: Code(s): I10 - Essential (primary) hypertension Category: Medical Qualifiers: Hypertension type: essential hypertension Qualified Code(s): I10 - Essential (primary) hypertension Plan: Continue with blood pressure medication. Decrease salt intake and exercise patient on hydrochlorothiazide. Discussed concerns about hydrochlorothiazide causing hypokalemia and advised to eat bananas for potassium supplementation. Will do blood work next time. (3) Scrotal pain: Comment: left side Code(s): N50.82 - Scrotal pain Category: Medical Plan: tender on palpation. Patient is treated as epididymitis with Cipro. Discussed on advised of ultrasound to be done. Plan - Reassess electrolyte imbalances, particularly hypokalemia, with dietary advice to include potassium-rich foods. - Advise increased fluid intake to counter dehydration, emphasizing the importance of hydration due to the history of kidney stones. - Schedule an ultrasound to assess the current status of the scrotum due to past mass removal and recent pain flare-ups. - Prescribe Ciprofloxacin for seven days to address potential epididymitis associated with scrotal discomfort. - Continue monitoring of hypertension and adjust antihypertensive treatment as necessary. - Clarify allergy medication specifics, explore alternatives if necessary, and ensure compatibility with existing medications. - Blood work to be repeated in November to re-evaluate potassium levels, hydration status, and overall health parameters. Orders: Orders 2 Complete Blood Count Auto Diff 3 Months I10 - Essential (primary) hypertension Comprehensive Met. Panel 3 Months I10 - Essential (primary) hypertension Thyroid Stimulating Hormone 3 Months I10 - Essential (primary) hypertension Lipid Panel 3 Months E78.00 - Pure hypercholesterolemia, unspecified, I10 - Essential (primary) hypertension Free T4 (Free Thyroxine) 3 Months I10 - Essential (primary) hypertension Vitamin B12 and Folate 3 Months I10 - Essential (primary) hypertension US scrotum Today N50.82 - Scrotal pain Medications: New 2 melatonin 3 mg PO BEDTIME PRN 30 caps 0RF sleep ciprofloxacin HCl (Cipro) 500 mg PO BID 14 tabs 0RF N50.82 - Scrotal pain Discontinued 2 cefdinir Discontinued Reason: Doctor's Order 300 mg PO BID 7 days 14 caps 0RF
[2024-07-25 15:12] VITALS: BP 130/82; PULSE 68; O2SAT 98; BMI 21.2
== END 2024-07-25 15:52 | disposition home or self-care (01) ==
PROVIDERS: PCP Internal Medicine; Visit Provider Internal Medicine
DX: N20.0 Calculus of kidney (principal); I10 Essential (primary) hypertension; N50.82 Scrotal pain

== ENCOUNTER → 2024-07-25 14:47 | Outpatient (BNVA) | payer OTHER, SELFPAY | PROVIDERS: PCP Internal Medicine; Visit Provider Internal Medicine | DX: I10 Essential (primary) hypertension (principal); N50.82 Scrotal pain; E78.00 Pure hypercholesterolemia, unspecified; N20.0 Calculus of kidney; Z87.440 Personal history of urinary (tract) infections | CPT/HCPCS: 99212 ==

== ENCOUNTER 2024-11-10 09:08 | Outpatient (REF) | payer OTHER, SELFPAY ==
[2024-11-10 09:17] LABS: MANUAL DIFF FLAG NO
[2024-11-10 09:39] LABS: Basophils Percent Auto 0.5 % (0-2); Eosinophils Absolute Auto 0.2 X10*3/uL (0.0-0.4); Eosinophils Percent Auto 2.8 % (0-4); Hematocrit 41.3 % (42.0-52.0); Imm Gran Abs Auto 0.02 X10*3/uL (0.00-0.03); Imm Gran Pct Auto 0.3 % (0.0-0.4); Lymphocytes Absolute Auto 2.8 X10*3/uL (1.2-4.9); Lymphocytes Percent Auto 35.8 % (20-40); Mean Corpuscular HGB Conc 33.9 g/dl (31.0-36.0); Mean Corpuscular Hemoglobin 32.2 pg (27.0-33.0); Mean Corpuscular Volume 94.9 fL (80.0-98.0); Mean Platelet Volume 9.7 fL (9.4-12.4); Monocytes Absolute Auto 0.6 X10*3/uL (0.1-1.2); Monocytes Percent Auto 7.5 % (2-11); Neutrophils Absolute Auto 4.1 x10*3/uL (2.0-8.3); Neutrophils Percent Auto 53.1 % (45-73); Platelet Count 186 X10*3/uL (160-400); Red Blood Count 4.35 X10*6/uL (4.60-5.80); Red Cell Distribution Width 13.2 % (11.0-16.0); White Blood Count 7.8 X10*3/uL (4.8-10.8)
--- OUTSIDE RECORDS SUMMARY | 2024-11-10 09:49 | XMS_ITS | Clinical Summary ---
[facility] Address [id number] [place] [id number] Care Team Providers Care Automotive Parts Counter Associate Name Role Phone Rekha Arshad MD Primary Care Provider Medical History Medical History Date Comments Colonoscopy refused 02/24/2018 DX:Colonosco py refused Renal cyst 08/13/2017 DX:Renal cyst Essential hypertension 02/12/2016 DX:Essent ial hypertension Depression 02/12/2016 DX:Depression Cervical spinal stenosis 02/12/2016 DX:Cerv ical spinal stenosis Ataxia 02/12/2016 DX:Ataxia Hydrocele 06/27/2018 DX:Hydrocele; CO MMENT: Follows with urology MCI (mild cognitive impairment) 02/12/2016 DX:MCI (mild cognitive impairment); COMMENT: Evaluated by neurology on Aricept Marijuana use 10/14/2018 DX:Marijuana use COPD (chronic obstructive pu lmonary disease) ([facility]) 2018 DX:COPD (chronic obstructive pulmonary disease) ([facility]); COMMENT: On CXR 10/2018 Former tobacco use 2018 DX:Former tob acco use; COMMENT: Quit 1981 Family History Relation Name Status Comments Mother Alive Social History Tobacco Use Types Packs/Day Years Used Date Smoking Tobacco: Former Cigarettes Q uit: 12/08/1981 Smokeless Tobacco: Never Alcohol Use Standard Drinks/Week Comments Yes 0 (1 standard drink = 0.6 oz pur e alcohol) Sex and Gender Information Value Date Recorded Sex Assigned at Not on file Legal Sex Male 3:33 PM EST Gender Identity Not on file Sexual Orientation Not on file Obstetrics History Plan of Treatment Health Maintenance Due Date Last Done Comments Pneumococcal Vaccine: 50+ Ye ars (1 of 1 - PCV) 1990 Zoster Vaccines (1 of 2) 1990 RSV Immunization Adult Patie nts (1 - 1-dose 75+ series) 10/27/2015 COVID-19 Vaccine (1 - 2023-2 5 season) 2024 Influenza Vaccine (#1) 2024 DTaP,Tdap,and Td Vaccines (2 - Td or Tdap) 08/14/2025 08/14/2015 HIB Vaccines Aged Out No longer eligi ble based on patient's age to complete this topic HPV Vaccines Aged Out No longer eligi ble based on patient's age to complete this topic Hepatitis A Vaccines Aged Out No long er eligible based on patient's age to complete this topic Hepatitis B Vaccines Aged Out No long er eligible based on patient's age to complete this topic IPV Vaccines Aged Out No longer eligi ble based on patient's age to complete this topic MMR Vaccines Aged Out No longer eligi ble based on patient's age to complete this topic Meningococcal ACWY Vaccine Aged Out N o longer eligible based on patient's age to complete this topic Meningococcal B Vacine Aged Out No lo nger eligible based on patient's age to complete this topic RSV Immunization Patients Un migue 20 months Aged Out No longer eligible b ased on patient's age to complete this topic Varicella Vaccines Aged Out No longer eligible based on patient's age to complete this topic Care Teams Automotive Parts Counter Associate Relationship Specialty Start Date End Date Rekha Arshad MD PCP - General Internal Medicine 10/04/17
[2024-11-10 11:06] LABS: Folate 11.5 ng/mL (> or = 4.0); Vitamin B12 476 pg/mL (200-900)
[2024-11-10 11:26] LABS: Alanine Aminotransferase 13 U/L (0-40); Albumin Level 3.9 g/dL (3.5-5.0); Alkaline Phosphatase 51 U/L (39-117); Anion Gap 9 (12-20); Aspartate Amino Transferase 27 U/L (5-37); Bilirubin Total 1.1 mg/dL (0.0-1.0); Blood Urea Nitrogen 26 mg/dL (9-16); Calcium 9.1 mg/dL (8.4-10.2); Carbon Dioxide 27 mmol/L (22-29); Chloride 111 mmol/L (96-108); Cholesterol 125 mg/dL (<200); Estimated Glomerular Filt Rate > 60; Glucose Random 89 mg/dL (60-115); HDL Cholesterol 41 mg/dL (>40); LDL Cholesterol Calculated 65 mg/dL (<100); Potassium 3.9 mmol/L (3.3-5.1); Sodium 143 mmol/L (135-145); Total Protein 6.7 g/dL (6.5-8.0); Triglycerides 97 mg/dL (<150)
[2024-11-10 11:31] LABS: Free T4 (Free Thyroxine) 0.98 ng/dL (0.71-1.85); Thyroid Stimulating Hormone 1.18 uIU/mL (0.32-4.0)
== END 2024-11-10 09:09 | disposition home or self-care (01) ==
LOC: HO.LAB 09:08
PROVIDERS: PCP Internal Medicine; Visit Provider Internal Medicine
DX: I10 Essential (primary) hypertension (principal); E78.00 Pure hypercholesterolemia, unspecified
CPT/HCPCS: 36415; 80053; 80061; 82607; 82746; 84439; 84443; 85025

== ENCOUNTER → 2024-11-23 15:28 | Outpatient (BNVA) | payer OTHER, SELFPAY | PROVIDERS: PCP Internal Medicine; Visit Provider Internal Medicine | DX: Z13.89 Encounter for screening for other disorder (principal) ==

== ENCOUNTER 2024-11-24 13:46 | Outpatient (AMB) | payer OTHER, SELFPAY ==
--- NOTE | 2024-11-24 13:53 | MHC.PC.OV ---
Vital Signs 11/24/24 13:54 Height 5 ft 8 in Weight 141 lb 8 oz BMI 21.5 BP 120/70 Blood Pressure Location Lt brachial Position Sitting Pulse 78 Pulse Source Pulse Oximeter Temp 97.8 F Temp Source Temporal Artery Scan Pulse Oximetry (%) 97 Oxygen Delivery Method Room Air Intake Visit Reasons: 4 month f/u Manufacturing Technology Professor Required: No Food Processing Chemist: Present Allergies cat dander [CATS] Allergy (Mild, Verified 11/24/24 13:54) RUNNY NOSE lisinopril Allergy (Unknown, Verified 11/24/24 13:54) Coughing amlodipine Adverse Reaction (Intermediate, Verified 11/24/24 13:54) spots in eyes losartan Adverse Reaction (Intermediate, Verified 11/24/24 13:54) vision problem metoprolol Adverse Reaction (Intermediate, Verified 11/24/24 13:54) dizziness Medication List - Last Reconciled 11/24/24 by Jessenia Zhu MD diphenhydramine HCl (Benadryl) 25 mg PO BEDTIME PRN hydrochlorothiazide 12.5 mg PO DAILY miscellaneous medical supply (Blood Pressure Cuff) As directed Tobacco use date assessed: 11/24/24 Fall risk assessment: No Falls in past year Last assessed Fall Risk: 11/24/24 Dental Screening Dental Screen Date: 11/23/24 [facility] Medical History (Updated 11/24/24 @ 14:13 by Jessenia Zhu MD) Positive TB test Partial small bowel obstruction BPH (benign prostatic hyperplasia) Memory deficit Renal calculus Hypertension Surgical History History of tonsillectomy History of testicular surgery Family History Father No problems noted. Mother No problems noted. Father No problems noted. Mother No problems noted. Social History Housing: Apartment Alcohol intake: current Alcohol intake frequency: a few times a month Comment: once Q month 1 beer Patient Tobacco Use Status: Former Tobacco user Tobacco use type: Cigarette Years Smoked: quit 1980 e-Cigarette/Vaping Use: Never Used Second Hand Smoke Exposure: Yes service: No Current occupational status: retired Cognitive needs: No Hearing needs: No Vision needs: Yes Questionnaire Thrive Questionnaire Date Thrive assessed: 11/23/24 CORI-7 AMB Questionnaire CORI-7 Date CORI - 7 assessed: 11/23/24 Source: Developed by Drs. Bill De Anda, Marialuisa Ma, Kevin Meadows and colleagues, with an educational ny from [employer]. Physical exam (Primary Care) Vital Signs: Last Vital Signs Temp 97.8 F 11/24/24 13:54 Pulse 78 11/24/24 13:54 BP 120/70 11/24/24 13:54 Pulse Ox 97 11/24/24 13:54 Oxygen Delivery Method Room Air 11/24/24 13:54 BMI result Body Mass Index 21.5 Tobacco/Smoking Status: Tobacco use Status Tobacco use date assessed 11/24/24 11/24/24 14:00 Patient Tobacco Use Status Former Tobacco user 11/24/24 14:00 Tobacco use type Cigarette 11/24/24 14:00 e-Cigarette/Vaping Use Never Used 11/24/24 14:00 Thrive Assessment: Date of Thrive Assessment Date Thrive assessed 11/23/24 11/24/24 14:00 Const General: alert; No acute distress Eyes Conjunctivae: conjunctivae normal Resp Auscultation: clear to auscultation bilaterally Cardio Rate: regular rate Rhythm: regular rhythm GI Inspection: Yes normal to inspection Extrem General: Yes normal to inspection and No edema Coding Level of Care Code Est Pt Level 4 (52857) Diagnoses Essential hypertension I10 Hypertension type: essential hypertension Positive TB test R76.11 Eczema L30.9 Assessment & Plan Assessment & Plan (1) Hypertension: Code(s): I10 - Essential (primary) hypertension Category: Medical Qualifiers: Hypertension type: essential hypertension Qualified Code(s): I10 - Essential (primary) hypertension (2) Positive TB test: Code(s): R76.11 - Nonspecific reaction to tuberculin skin test without active tuberculosis Category: Medical (3) Eczema: Comment: R upper back Code(s): L30.9 - Dermatitis, unspecified Category: Medical Plan History of Present Illness The patient is an 84-year-old male presenting for ongoing management of hypertension, BPH, and recent concerns about a positive tuberculosis test. The patient has a history of small bowel obstruction in 2019 and nephrolithiasis. Routine blood laboratory results from early 2023 indicated normal parameters in blood count, electrolytes, kidney, and liver functions. The patient reports adequate weight maintenance, though hydration remains a concern given the use of diuretics for hypertension management. During this visit, he describes using antihistamines to manage skincare issues and rashes, which are possibly eczema-related, and which he states has improved with currently applied topical agents. Additionally, he tolerates some constipation, attributed to dietary habits, particularly a high intake of cheese. The tuberculosis test, initially done years ago and noted as negative, has now converted to positive, raising concerns about next steps, which were discussed to be further evaluated with an infectious disease specialist. Health Maintenance - Current with tetanus immunization - Documented shingles vaccination - No recent colonoscopy due to patient declination - Encouraged to increase water intake to combat potential dehydration Social History - Diet includes significant cheese intake, contributing to constipation - Suffers occasional insomnia, managed partially with antihistamines - Visits [facility] for prescription refills; prefers 90-day supply for convenience - High level of activity, frequently walking to destinations Review of Systems - HEENT: Denies symptoms - Dermatological: Reports rash improved with topical agent - Cardiovascular: Denies swelling in limbs - Gastrointestinal: Reports constipation related to high cheese diet - Hematological: Denies bruising or bleeding - Psychological: Reports affected sleep from itching - General: Denies unexpected weight changes Physical Exam Results - Labs: Blood work from November 11, 2023, shows normal blood count, white cell count, platelet count, electrolytes, renal function, blood sugar, liver function, cholesterol, B12, folic acid, and thyroid levels - Tests: Positive TB test in April 2024 Plan The plan includes referring for infectious disease evaluation of the positive TB test and adjusting medication management to enhance fluid intake to counteract potential dehydration due to blood pressure medication. A prescription for a 90-day supply will be implemented for easier access and management. Continuation of the current topical treatment for skin rash is recommended, with the option for non-drowsy antihistamines to manage itching more effectively. Dietary modification to increase fiber and water intake was advised to address constipation. Discussions were held regarding TB concerns, ongoing medication adherence, and lifestyle modifications to enhance overall health. Patient was informed and verbally consented to the use of an ambient scribe for clinic note documentation during this visit. Discussion Notes I detailed with the patient the significance of the positive TB test and the need for infectious disease consultation. We discussed the regimen for blood pressure management, emphasizing dehydration prevention via increased fluid intake due to diuretic use. Regarding skin issues, I highlighted the benefits of antihistamines for symptomatic relief, especially those that minimize sedation. The patient consented to receiving a 90-day prescription refill to simplify medication adherence. I reinforced lifestyle adjustments to counteract constipation and maintain well-being. Discussions of possible future colonoscopy screening and the patient's decision to defer at this time were acknowledged. No additional immediate interventions are deemed necessary. Patient Instructions - Follow-up required with an infectious disease specialist for TB evaluation. - Increase daily water intake, especially considering diuretic usage for hypertension. - Continue topical cream for skin rash as directed. - Consider trying claritin or susan for nighttime itching if current antihistamine is too sedative. - Consume a balanced diet, increasing fiber to alleviate constipation. - Collect prescription refills every 90 days for added convenience. - Remain active and continue walking regularly. - Report any new or concerning symptoms promptly. Orders: Referrals Infectious Disease Referral R76.11 - Nonspecific reaction to tuberculin skin test without active tuberculosis Medications: Refilled hydrochlorothiazide 12.5 mg PO DAILY 90 tabs 2RF I10 - Essential (primary) hypertension Discontinued ciprofloxacin HCl (Cipro) Discontinued Reason: Patient Completed Course 500 mg PO BID 14 tabs 0RF N50.82 - Scrotal pain
[2024-11-24 13:54] VITALS: BP 120/70; PULSE 78; TEMP 36.6; O2SAT 97; BMI 21.5
--- OUTSIDE RECORDS SUMMARY | 2024-11-24 14:08 | XMS_ITS | Clinical Summary ---
[facility] Organization [facility] Address [id number] [place] [phone] Care Team Providers Care Software Quality Assurance Specialist Name Role Phone Rekha Arshad MD Primary [...] use COPD (chronic obstructive pu lmonary disease) ([facility] V24, [facility] V28) 2018 DX:COPD (chronic o bstructive pulmonary disease) ([facility]); COMMENT: On CXR 10/2018 Former [...] - 1-dose 75+ series) 10/27/2015 COVID-19 Vaccine ( - 2023-2 5 season) 2024 Influenza Vaccine (Season Ended) 2025 DTaP,Tdap,and Td Vaccines (2 - Td or [...] age to complete this topic Meningococcal B Vaccine Aged Out No l onger eligible based on patient's age to complete this topic RSV Immunization Patients Un migue 20 months Aged Out No longer eligible b ased on patient's age to complete this topic Varicella Vaccines Aged Out No longer eligible based on patient's age to complete this topic Care Teams Software Quality Assurance Specialist Relationship Specialty Start Date End Date Rekha Arshad MD PCP - General Internal Medicine 10/04/17
== END 2024-11-24 14:28 | disposition home or self-care (01) ==
LOC: HO.HMCH 13:46
PROVIDERS: PCP Internal Medicine; Visit Provider Internal Medicine
DX: I10 Essential (primary) hypertension (principal); R76.11 Nonspecific reaction to tuberculin skin test without active tuberculosis; L30.9 Dermatitis, unspecified

== ENCOUNTER → 2024-11-24 13:46 | Outpatient (BNVA) | payer OTHER, SELFPAY | PROVIDERS: PCP Internal Medicine; Visit Provider Internal Medicine | DX: I10 Essential (primary) hypertension (principal); R76.11 Nonspecific reaction to tuberculin skin test without active tuberculosis; L30.9 Dermatitis, unspecified | CPT/HCPCS: 99212 ==

== ENCOUNTER 2025-02-27 08:59 | Outpatient (AMB) | payer OTHER, SELFPAY ==
[2025-02-27 09:01] VITALS: BP 122/90; PULSE 56; TEMP 36.3; O2SAT 98; BMI 20.6
--- NOTE | 2025-02-27 09:01 | A.OFFPC_ITS ---
Vital Signs 02/27/25 09:01 Height 5 ft 8 in Weight 135 lb 4 oz BMI 20.6 BP 122/90 H Blood Pressure Location Lt brachial Position Sitting Pulse 56 Pulse Source Pulse Oximeter Temp 97.3 F Temp Source Temporal Artery Scan Pulse Oximetry (%) 98 Oxygen Delivery Method Room Air Intake Visit Reasons: Annual Exam Rescheduled Allergies cat dander (CATS) Allergy (Mild, Verified 02/27/25 09:03) RUNNY NOSE lisinopril Allergy (Unknown, Verified 02/27/25 09:03) Coughing amlodipine Adverse Reaction (Intermediate, Verified 02/27/25 09:03) spots in eyes losartan Adverse Reaction (Intermediate, Verified 02/27/25 09:03) vision problem metoprolol Adverse Reaction (Intermediate, Verified 02/27/25 09:03) dizziness Medication List - Last Reconciled 02/27/25 by Jessenia Zhu MD hydrochlorothiazide 12.5 mg PO DAILY miscellaneous medical supply (Blood Pressure Cuff) As directed Tobacco use date assessed: 02/27/25 Fall risk assessment: No Falls in past year Last assessed Fall Risk: 02/27/25 Dental Screening Dental Screen Date: 02/27/25 Did you have a dental visit in the last 12 months?: Yes Did you have a dental problem in the last 6 months where you did not have access to dental care?: No Was dental information given to patient?: Patient has dentist HPI Annual Exam Rescheduled HPI Details PAtient noted to have elevated BP here and advised to check BP at home. deny depresssion nor counselling, complains of memory problem and MMSE done [facility] Medical History (Updated 02/27/25 @ 09:16 by Jessenia Zhu MD) Cataract Nasal congestion Ear congestion Procedure and treatment not carried out due to patient leaving prior to being seen by health care provider Annual physical exam Positive TB test Partial small bowel obstruction BPH (benign prostatic hyperplasia) Memory deficit Renal calculus Hypertension Surgical History History of tonsillectomy History of testicular surgery Family History Father No problems noted. Mother No problems noted. Father No problems noted. Mother No problems noted. Social History (Updated 02/27/25 @ 09:15 by Jessenia Zhu MD) Housing: Apartment Alcohol intake: current Alcohol intake frequency: a few times a month Comment: once Q month 1 beer stopped 2021 hx of alcoholic Patient Tobacco Use Status: Former Tobacco user Tobacco use type: Cigarette Years Smoked: quit 1980 e-Cigarette/Vaping Use: Never Used Second Hand Smoke Exposure: Yes service: No Current occupational status: retired Cognitive needs: No Hearing needs: No Vision needs: Yes Questionnaire PHQ-9 Over the last 2 weeks, how often have you been bothered by any of the following problems? 1. Little interest or pleasure in doing things: not at all 2. Feeling down, depressed, or hopeless: not at all 3. Trouble falling or staying asleep, or sleeping too much: not at all 4. Feeling tired or having little energy: not at all 5. Poor appetite or overeating: not at all 6. Feeling bad about yourself - or that you are a failure or have let yourself or your family down: not at all 7. Trouble concentrating on things, such as reading the newspaper or watching television: not at all 8. Moving or speaking so slowly that other people could have noticed. Or the opposite - being so fidgety or restless that you have been moving around a lot more than usual: not at all 9. Thoughts that you would be better off or of hurting yourself in some way: not at all Total score: 0 Source: Developed by Drs. Bill De Anda, Marialuisa Ma, Kevin palma nd colleagues, with an educational ny from [employer]. Thrive Questionnaire Date Thrive assessed: 11/23/24 I am a: Patient What is your living situation today?: I have a steady place to live Within the past 12 months, did the food you bought not last and you didn't have the money to get more?: Never true Within the past 12 months, did you worry whether your food would run out before you got money to buy more?: Never true Do you have trouble paying for medicines?: No Do you have trouble getting transportation to medical appointments?: No Do you have trouble paying your heating and electricity bill?: No Do you have trouble taking care of your child, family member or friend?: No Do you have trouble with day-to-day activities such as bathing, preparing meals, shopping, managing finances, etc.?: No Are you currently unemployed and looking for a job?: No Are you interested in more education?: No Please select the resources that you would like help with: None Currently or been in a relationship where the following occur: No concerns reported THRIVE Score: 0 AUDIT C Alcohol Use Questionnaire (AUDIT-C) 1. How often do you have a drink containing alcohol?: Never 3. How often do you have six or more drinks on one occasion?: Never Total Score: 0 CORI-7 AMB Questionnaire CORI-7 Date CORI - 7 assessed: 11/23/24 Feeling nervous, anxious, or on edge: 0 = Not at all Not being able to stop or control worryin = Not at all Worrying too much about different things: 0 = Not at all Trouble relaxin = Not at all Being so restless that it is hard to sit still: 0 = Not at all Becoming easily annoyed or irritable: 0 = Not at all Feeling afraid as if something awful might happen: 0 = Not at all Total CORI-7 score (0-4 normal; 5-9 mild; 10-14 moderate; 15-21 severe): 0 Source: Developed by Drs. Bill De Anda, Marialuisa Ma, Kevin Meadows and colleagues, with an educational ny from [employer]. Review of Systems Const Denies poor appetite and Denies weakness Eyes Denies no additional complaints ENT Reports Normal hearing present, Denies dizziness, Denies nasal congestion, Denies tinnitus and Denies sore throat Card Denies chest pain, Denies syncope, Denies rapid heart rate and Denies dyspnea Resp Denies cough and Denies dyspnea GI Denies change in stool character, Reports constipation, Denies diarrhea, Denies nausea and Denies vomiting Denies dysuria and Denies urinary frequency Neuro Reports Normal hearing present, Denies confusion, Denies dizziness, Denies syncope and Denies weakness Psych Denies confusion Physical exam (Primary Care) Vital Signs: Last Vital Signs Temp 97.3 F 02/27/25 09:01 Pulse 56 02/27/25 09:01 BP 122/90 H 02/27/25 09:01 Pulse Ox 98 02/27/25 09:01 Oxygen Delivery Method Room Air 02/27/25 09:01 BMI result Body Mass Index 20.6 Tobacco/Smoking Status: Tobacco use Status Tobacco use date assessed 02/27/25 02/27/25 09:04 Patient Tobacco Use Status Former Tobacco user 02/27/25 09:15 Tobacco use type Cigarette 02/27/25 09:15 e-Cigarette/Vaping Use Never Used 02/27/25 09:15 PHQ-9: PHQ-9 Score PHQ-9: Total score 0 02/27/25 09:08 Thrive Assessment: Date of Thrive Assessment Date Thrive assessed 11/23/24 02/27/25 09:04 Currently or been in a relationship where the following occur: No concerns reported Const General: No confusion Orientation/consciousness: No confusion HENMT Head: Yes normocephalic Ears: external ears normal and TM's normal bilaterally Face and sinus: Yes normal facial exam Mouth: moist mucous membranes Throat: Yes tonsils normal Eyes Conjunctivae: conjunctivae normal Pupils: Equal, round and reactive pupils present and Pupil accommodation reflex normal Direct Ophthalmoscopy: normal light reflex Neck Neck: No lymphadenopathy Thyroid: Thyroid normal Chest Chest palpation & inspection: normal inspection of the chest Resp Effort & Inspection: normal respiratory effort and no audible wheezes Auscultation: clear to auscultation bilaterally, no crackles, no wheezes and lung sounds not diminished Cardio Rate: regular rate Rhythm: regular rhythm Peripheral pulses: radial pulses present and dorsalis pedis present GI Other: decline rectal Palpation (GI): no masses Auscultation: normal bowel sounds and normoactive bowel sounds Rectal Exam - Male: Yes deferred Male General Exam: Yes normal external exam Skin General skin exam: no rashes or lesions noted Rashes: no rashes Neuro General: No confusion Cranial nerves: Yes Equal, round and reactive pupils present and Yes Normal hearing present Cognition (Neuro): normal cognition Gait exam (Neuro): Normal gait present Motor exam (neuro): 5/5 motor strength present throughout Deep tendon reflexes (DTR's): Right brachioradialis reflex intensity grade: 2+, Left brachioradialis reflex intensity grade: 2+, Right patellar reflex intensity grade: 2+ and Left patellar reflex intensity grade: 2+ Extrem General: No edema Coding Level of Care Code Est Pt Prev Care >65y(72222) Diagnoses Annual physical exam Z00.00 Essential hypertension I10 Hypertension type: essential hypertension Benign prostatic hyperplasia with urinary frequency N40.1; R35.0 Lower urinary tract symptom detail: urinary frequency Lower urinary tract symptom presence: symptoms present Constipation K59.00 Assessment & Plan Assessment & Plan (1) Annual physical exam: Code(s): Z00.00 - Encounter for general adult medical examination without abnormal find ings Category: Medical Plan: Patient is advised to eat healthy, keep well hydrated, keep active and have adequate sleep. (2) Hypertension: Code(s): I10 - Essential (primary) hypertension Category: Medical Qualifiers: Hypertension type: essential hypertension Qualified Code(s): I10 - Essential (primary) hypertension Plan: Continue with blood pressure medication. Decrease salt intake and exercise on hydrochlorothiazide 12.5 mg once a (3) BPH (benign prostatic hyperplasia): Code(s): N40.0 - Benign prostatic hyperplasia without lower urinary tract symptoms Category: Medical Qualifiers: Lower urinary tract symptom detail: urinary frequency Lower urinary tract symptom presence: symptoms present Qualified Code(s): N40.1 - Benign prostatic hyperplasia with lower urinary tract symptoms; R35.0 - Frequency of micturition Plan: Stable (4) Constipation: Code(s): K59.00 - Constipation, unspecified Category: Medical Plan: Three rules for constipation 1. Diet need to have a high fiber diet less of meat 2. Increase oral fluids 3. Exercise Plan History of Present Illness The patient is an 84-year-old male presenting for an annual physical exa mination. He has a history of hypertension, benign prostatic hyperplasia (BPH), and nephrolithiasis. The patient reports that his blood pressure is managed with hydrochlorothiazide 12.5 mg daily, but he is advised to monitor his blood pressure at home due to concerns about elevated readings. The patient experiences constipation but does not consider it a significant problem and manages it with [id number] products. He denies any significant urinary symptoms despite his history of BPH. The patient reports hearing loss, which he does not find severe enough to warrant further testing at this time. He also mentions memory problems, which are not currently impacting his daily activities significantly. The patient has a history of depression, which he describes as mild and not requiring intervention at this time. He has declined a colonoscopy, citing age as a factor in his decision. Health Maintenance - Blood pressure monitoring at home advised - Declined colonoscopy for colorectal cancer screening - Up to date with shingles and tetanus vaccinations Social History - Exercise: Patient walks regularly and enjoys outdoor activities. - Nutrition: Consumes fish and chicken, avoids alcohol, and eats greens regularly. - Substance Use: Former alcoholic, abstinent for three years, no tobacco use. - Hobbies: Enjoys writing and painting as leisure activities. Review of Systems - Cardiovascular: Denies chest pain, orthopnea, or syncope. - Respiratory: Denies dyspnea, cough, or wheezing. - Gastrointestinal: Reports constipation, denies nausea or vomiting. - Neurological: Reports memory problems, denies dizziness or headaches. - Psychiatric: Reports mild depression, denies severe mood swings. - Genitourinary: Denies dysuria or hematuria. - Musculoskeletal: Denies joint pain or swelling. Physical Exam General: Cooperative, healthy appearing, comfortable, no acute distress and well developed Orientation: Patient oriented x3 Limitations: No limitations Head: Normal to inspection Ears: Hearing not perfect, but okay Nose: Normal external nose present Face and sinus: Normal facial exam Eyes: Appearance normal, both eyes and all related structures Neck: Normal visual inspection and Yes full ROM Respiratory: Normal respiratory effort and able to speak in complete sentences. Clear to auscultation bilaterally Cardiovascular: Regular rate and rhythm. Normal S1 and S2 GI: Normal to inspection. Soft to palpation and nontender Skin: No rashes or lesions noted Neuro: Patient oriented x3 Extremities: Normal to inspection Results - Labs: Normal blood work including complete blood count, electrolytes, renal function, liver function, cholesterol, B12, folic acid, and thyroid levels. Plan The patient is advised to continue monitoring his blood pressure at home, as there is concern about elevated readings despite being on hydrochlorothiazide 12.5 mg daily. He is encouraged to maintain a healthy diet and regular exercise to support overall cardiovascular health. The patient has declined further colorectal cancer screening via colonoscopy, and this decision is respected given his age and personal preference. For his constipation, the patient is managing with [id number] products and does not require additional prescription medication at this time. Hearing loss is acknowledged, but no immediate intervention is planned as it is not significantly impacting his quality of life. Memory concerns are noted, but they are not currently affecting daily functioning to a degree that warrants further investigation. The patient is encouraged to remain active and engaged in his hobbies, such as writing and painting, to support mental health. Patient was informed and verbally consented to the use of an ambient scribe for clinic note documentation during this visit. Discussion Notes During the visit, I discussed with the patient the importance of monitoring his blood pressure at home and maintaining a healthy lifestyle to manage his hypertension. We reviewed his decision to decline a colonoscopy, and I respected his choice given his age and personal preferences. I also addressed his concerns about constipation and hearing loss, advising that current management strategies are appropriate. The patient was encouraged to continue engaging in activities that support his mental health, such as writing and painting. Patient Instructions - Monitor your blood pressure at home regularly and record the readings. - Maintain a healthy diet and regular exercise routine. - Continue using [id number] products for constipation as needed. - Stay engaged in activities you enjoy, like writing and painting, to support mental health.
--- OUTSIDE RECORDS SUMMARY | 2025-02-27 09:27 | XMS_ITS | Clinical Summary ---
Author Organization [facility] Address [id number] [place] [id number] Care Team Providers Care Bark Grinder Name Role Phone Rekha Arshad MD Primary [...] use COPD (chronic obstructive pu lmonary disease) ([facility] V24, [facility] V28) 2018 DX:COPD (chronic o bstructive pulmonary disease) ([facility]); COMMENT: On CXR 10/2018 Former [...] Vaccine (1 - 2023-2 5 season) 2024 Depression Screening 08/09/2024 Influenza Vaccine (#1) 2025 DTaP,Tdap,and Td Vaccines (2 - Td [...] age to complete this topic Care Teams Bark Grinder Relationship Specialty Start Date End Date Rekha Arshad MD PCP - General Internal Medicine 10/04/17
== END 2025-02-27 09:45 | disposition home or self-care (01) ==
LOC: HO.HMCH 09:00
PROVIDERS: PCP Internal Medicine; Visit Provider Internal Medicine
DX: Z00.00 Encounter for general adult medical examination without abnormal findings (principal); I10 Essential (primary) hypertension; N40.1 Benign prostatic hyperplasia with lower urinary tract symptoms; R35.0 Frequency of micturition; K59.00 Constipation, unspecified

== ENCOUNTER → 2025-02-27 08:59 | Outpatient (BNVA) | payer OTHER, SELFPAY | PROVIDERS: PCP Internal Medicine; Visit Provider Internal Medicine | DX: Z00.00 Encounter for general adult medical examination without abnormal findings (principal); I10 Essential (primary) hypertension; N40.1 Benign prostatic hyperplasia with lower urinary tract symptoms; R35.0 Frequency of micturition; K59.00 Constipation, unspecified | CPT/HCPCS: 96127; 99397 ==

== ENCOUNTER 2025-06-25 15:53 | Outpatient (AMB) | payer OTHER, SELFPAY ==
--- OUTSIDE RECORDS SUMMARY | 2025-06-20 11:20 | XMS_ITS | Continuity of Care Document ---
Author Name [facility], Medical Address [address] [place] [id number] Organization Unknown Address [address] [place] [id number] Medications No known medications Problems No known problems
--- OUTSIDE RECORDS SUMMARY | 2025-06-20 11:20 | XMS_ITS | Clinical Summary ---
Author Organization [facility] Address [address] [place] [id number] Care Team Providers Care Veterinary Laboratory Technician Name Role Phone Rekha Arshad MD Primary [...] COPD (chronic obstructive pu lmonary disease) ([facility] V24, [facility] V28) 2018 DX:COPD (chronic o bstructive pulmonary disease) ([facility]); COMMENT: On CXR 10/2018 Former tobacco use 2018 DX:Former tob acco use; COMMENT: Quit 1981 Family History Relation Name Status Comments Mother Alive Social History Tobacco Use Types Packs/Day Years Used Date Smoking Tobacco: Former Cigarettes 0 Q uit: 12/08/1981 Smokeless Tobacco: Never Alcohol [...] nts (1 - 1-dose 75+ series) 10/27/2015 Depression Screening 08/09/2024 COVID-19 Vaccine (1 - 2024-2 6 season) 2025 Influenza Vaccine (#1) 2025 DTaP,Tdap,and Td Vaccines [...] age to complete this topic Care Teams Veterinary Laboratory Technician Relationship Specialty Start Date End Date Rekha Arshad MD PCP - General Internal Medicine 10/04/17
[2025-06-25 16:07] VITALS: BP 130/72; PULSE 68; O2SAT 98; BMI 21.9
--- NOTE | 2025-06-25 16:07 | A.OFFPC_ITS ---
Vital Signs 06/25/25 16:07 Height 5 ft 8 in Weight 144 lb BMI 21.9 BP 130/72 Blood Pressure Location Lt brachial Position Sitting Pulse 68 Pulse Source Pulse Oximeter Pulse Oximetry (%) 98 Oxygen Delivery Method Room Air Intake Visit Reasons: Hypertension Allergies cat dander (CATS) Allergy (Mild, Verified 06/25/25 16:08) RUNNY NOSE lisinopril Allergy (Unknown, Verified 06/25/25 16:08) Coughing amlodipine Adverse Reaction (Intermediate, Verified 06/25/25 16:08) spots in eyes losartan Adverse Reaction (Intermediate, Verified 06/25/25 16:08) vision problem metoprolol Adverse Reaction (Intermediate, Verified 06/25/25 16:08) dizziness Medication List - Last Reconciled 06/25/25 by Jessenia Zhu MD hydrochlorothiazide 12.5 mg PO DAILY miscellaneous medical supply (Blood Pressure Cuff) As directed Tobacco use date assessed: 02/27/25 Fall risk assessment: No Falls in past year Last assessed Fall Risk: 06/25/25 Dental Screening Dental Screen Date: 02/27/25 HPI Hypertension HPI Details 84-year-old male with a history of BPH h ypertension nephrolithiasis coming in for follow-up . Patient complains of having scrotal pain in which ultrasound was requested before but has not had it done since it resolved on its own. Presently having the pain again and prompting for consultation. Otherwise patient has hypertension and is on hydrochlorothiazide. Patient was last seen in February 2025 and the last blood work was done in November 2024. [facility] Medical History (Updated 02/27/25 @ 09:16 by Jessenia Zhu MD) Cataract Nasal congestion Ear congestion Procedure and treatment not carried out due to patient leaving prior to being seen by health care provider Annual physical exam Positive TB test Partial small bowel obstruction BPH (benign prostatic hyperplasia) Memory deficit Renal calculus Hypertension Surgical History History of tonsillectomy History of testicular surgery Family History Father No problems noted. Mother No problems noted. Father No problems noted. Mother No problems noted. Social History (Updated 02/27/25 @ 09:15 by Jessenia Zhu MD) Housing: Apartment Alcohol intake: current Alcohol intake frequency: a few times a month Comment: once Q month 1 beer stopped 2021 hx of alcoholic Patient Tobacco Use Status: Former Tobacco user Tobacco use type: Cigarette Years Smoked: quit 1980 e-Cigarette/Vaping Use: Never Used Second Hand Smoke Exposure: Yes service: No Current occupational status: retired Cognitive needs: No Hearing needs: No Vision needs: Yes Questionnaire PHQ-9 Over the last 2 weeks, how often have you been bothered by any of the following problems? 1. Little interest or pleasure in doing things: not at all 2. Feeling down, depressed, or hopeless: not at all 3. Trouble falling or staying asleep, or sleeping too much: not at all 4. Feeling tired or having little energy: not at all 5. Poor appetite or overeating: not at all 6. Feeling bad about yourself - or that you are a failure or have let yourself or your family down: not at all 7. Trouble concentrating on things, such as reading the newspaper or watching television: not at all 8. Moving or speaking so slowly that other people could have noticed. Or the opposite - being so fidgety or restless that you have been moving around a lot more than usual: not at all 9. Thoughts that you would be better off or of hurting yourself in some way: not at all Total score: 0 Source: Developed by Drs. Bill De Anda, Marialuisa Ma, Kevin Meadows and colleagues, with an educational ny from [employer]. Thrive Questionnaire Date Thrive assessed: 02/27/25 I am a: Patient What is your living situation today?: I have a steady place to live Within the past 12 months, did the food you bought not last and you didn't have the money to get more?: Never true Within the past 12 months, did you worry whether your food would run out before you got money to buy more?: Never true Do you have trouble paying for medicines?: No Do you have trouble getting transportation to medical appointments?: No Do you have trouble paying your heating and electricity bill?: No Do you have trouble taking care of your child, family member or friend?: No Do you have trouble with day-to-day activities such as bathing, preparing meals, shopping, managing finances, etc.?: No Are you currently unemployed and looking for a job?: No Are you interested in more education?: No Please select the resources that you would like help with: None Currently or been in a relationship where the following occur: No concerns reported THRIVE Score: 0 CORI-7 AMB Questionnaire CORI-7 Date CORI - 7 assessed: 11/23/24 Source: Developed by Drs. Bill De Anda, Marialuisa Ma, Kevin Meadows and colleagues, with an educational ny from [employer]. Physical exam (Primary Care) Vital Signs: Last Vital Signs Pulse 68 06/25/25 16:07 BP 130/72 06/25/25 16:07 Pulse Ox 98 06/25/25 16:07 Oxygen Delivery Method Room Air 06/25/25 16:07 BMI result Body Mass Index 21.9 Tobacco/Smoking Status: Tobacco use Status Tobacco use date assessed 02/27/25 06/25/25 16:11 Patient Tobacco Use Status Former Tobacco user 06/25/25 16:11 Tobacco use type Cigarette 06/25/25 16:11 e-Cigarette/Vaping Use Never Used 06/25/25 16:11 PHQ-9: PHQ-9 Score PHQ-9: Total score 0 06/25/25 16:33 Thrive Assessment: Date of Thrive Assessment Date Thrive assessed 02/27/25 06/25/25 16:11 Currently or been in a relationship where the following occur: No concerns reported Const General: alert; No acute distress Eyes Conjunctivae: conjunctivae normal Resp Auscultation: clear to auscultation bilaterally Cardio Rate: regular rate Rhythm: regular rhythm GI Inspection: Yes normal to inspection Extrem General: Yes normal to inspection and No edema Results AMB Urinalysis, Automated UA Leukoctes 0 Pily/uL Last Edit by Silvia Castaneda CMA on 06/25/25 16:34 UA Nitrite Negative Last Edit by Silvia Castaneda CMA on 06/25/25 16:34 UA Urobilinogen 0.2 mg/dL Last Edit by Silvia Castaneda CMA on 06/25/25 16:34 UA Protein 0 mg/dL Last Edit by Silvia Castaneda CMA on 06/25/25 16:34 UA pH 6.0 Last Edit by Silvia Castaneda CMA on 06/25/25 16:34 UA Blood 25 Rickey/uL Last Edit by Silvia Castaneda CMA on 06/25/25 16:34 UA Specific [place] 1.015 Last Edit by Silvia Castaneda CMA on 06/25/25 16:34 UA Ketone Negative Last Edit by Silvia Castaneda CMA on 06/25/25 16:34 UA Bilirubin 0 mg/dL Last Edit by Silvia Castaneda CMA on 06/25/25 16:34 UA Glucose 0 mg/dL Last Edit by Silvia Castaneda CMA on 06/25/25 16:34 Results Reviewed Results Reviewed: Laboratory Last Values Urine pH (Auto) 6.0 06/25/25 16:33 Specific [place] (Auto) 1.015 06/25/25 16:33 Urine Protein (Auto) 0 mg/dL 06/25/25 16:33 Glucose (UA)(Auto) 0 mg/dL 06/25/25 16:33 Urine Ketones (Auto) Negative 06/25/25 16:33 Urine Blood (Auto) 25 Rickey/uL 06/25/25 16:33 Urine Nitrite (Auto) Negative 06/25/25 16:33 Urine Bilirubin (Auto) 0 mg/dL 06/25/25 16:33 Urine Urobilinogen (Auto) 0.2 mg/dL 06/25/25 16:33 Leukocyte Esterase (Auto) 0 Pily/uL 06/25/25 16:33 Coding Level of Care Code Est Pt Level 4 (39130) Diagnoses Essential hypertension I10 Hypertension type: essential hypertension Renal calculus N20.0 Benign prostatic hyperplasia with urinary frequency N40.1; R35.0 Lower urinary tract symptom detail: urinary frequency Lower urinary tract symptom presence: symptoms present Scrotal pain N50.82 Assessment & Plan Assessment & Plan (1) Hypertension: Code(s): I10 - Essential (primary) hypertension Category: Medical Qualifiers: Hypertension type: essential hypertension Qualified Code(s): I10 - Essential (primary) hypertension Plan: Continue with blood pressure medication. Decrease salt intake and exercise on hydrochlorothiazide 12.5 mg once a day last complete blood work was in November 2024 (2) Renal calculus: Comment: Right 05/2021, L 04/2022 Code(s): N20.0 - Calculus of kidney Category: Medical Plan: Keep well hydrated (3) BPH (benign prostatic hyperplasia): Code(s): N40.0 - Benign prostatic hyperplasia without lower urinary tract symptoms Category: Medical Qualifiers: Lower urinary tract symptom detail: urinary frequency Lower urinary tract symptom presence: symptoms present Qualified Code(s): N40.1 - Benign prostatic hyperplasia with lower urinary tract symptoms; R35.0 - Frequency of micturition Plan: Stable (4) Scrotal pain: Comment: left side Code(s): N50.82 - Scrotal pain Category: Medical Plan: Will treat for epididymitis but will order for ultrasound of the scrotum Orders: Orders Thyroid Stimulating Hormone 6 Months I10 - Essential (primary) hypertension UA w Microscopic 6 Months I10 - Essential (primary) hypertension AMB Urinalysis Automated Today N50.82 - Scrotal pain, Z13.9 - Encounter for screening, unspecified Complete Blood Count Auto Diff 6 Months I10 - Essential (primary) hypertension Comprehensive Met. Panel 6 Months I10 - Essential (primary) hypertension Free T4 (Free Thyroxine) 6 Months I10 - Essential (primary) hypertension Lipid Panel 6 Months E78.00 - Pure hypercholesterolemia, unspecified, I10 - Essential (primary) hypertension Vitamin B12 and Folate 6 Months I10 - Essential (primary) hypertension US scrotum Today N50.82 - Scrotal pain Medications: New sulfamethoxazole-trimethoprim 800-160 mg (Bactrim DS) 1 tab PO BID 14 tabs 0RF N50.82 - Scrotal pain
== END 2025-06-25 16:35 | disposition home or self-care (01) ==
PROVIDERS: PCP Internal Medicine; Visit Provider Internal Medicine
DX: I10 Essential (primary) hypertension (principal); N20.0 Calculus of kidney; N40.1 Benign prostatic hyperplasia with lower urinary tract symptoms; R35.0 Frequency of micturition; N50.82 Scrotal pain; Z13.9 Encounter for screening, unspecified

== ENCOUNTER → 2025-06-25 15:53 | Outpatient (BNVA) | payer OTHER, SELFPAY | PROVIDERS: PCP Internal Medicine; Visit Provider Internal Medicine | DX: I10 Essential (primary) hypertension (principal); N40.0 Benign prostatic hyperplasia without lower urinary tract symptoms; N20.0 Calculus of kidney; N40.1 Benign prostatic hyperplasia with lower urinary tract symptoms; R35.0 Frequency of micturition; N50.82 Scrotal pain; E78.00 Pure hypercholesterolemia, unspecified | CPT/HCPCS: 81003; 96127; 99212 ==

== ENCOUNTER 2025-07-09 16:10 | Outpatient (REF) | payer OTHER, SELFPAY ==
--- NOTE | ~2025-07-09 | US_ITS ---
EXAMINATION: US SCROTUM CLINICAL INFORMATION: N 50.82.. COMPARISON: None available. TECHNIQUE: A sonogram of the scrotum was performed assessing anthony-scale appearance and color Doppler flow. Spectral Doppler analysis of the arterial and venous flow were performed in the testes bilaterally. FINDINGS: RIGHT: Right testicle measures 3.8 x 2.5 x 2.9 cm, volume 14.4 mL. No solid or cystic lesion. Spectral Doppler analysis of the arterial and venous flow is normal in the right testis. Right epididymal head is normal in size. There is a moderate volume of anechoic abnormality within the scrotal sac with septations. There is prominent, 3.3 mm pampiniform plexus during Valsalva maneuvers. Right epididymal Doppler flow is normal. LEFT: Left testicle measures 2.7 x 1.6 x 1.8 cm, volume 5.6 mL. No solid or cystic lesion. Spectral Doppler analysis of the arterial and venous flow is normal in the left testis. Left epididymal head is normal in size. There is no hydrocele. There is prominent, 5.5 mm pampiniform plexus during Valsalva maneuvers. Left epididymal Doppler flow is normal. US/US scrotum IMPRESSION: Complex right-sided hydrocele, moderate volume. Consider prior trauma versus infection. Varicocele, bilaterally. No testicular torsion. No testicular mass. Electronically signed by: Jacoby Tyler MD 07/10/2025 06:41 AM EST
--- OUTSIDE RECORDS SUMMARY | 2025-07-09 18:41 | XMS_ITS | Clinical Summary ---
Author Organization [facility] Address [id number] [place] [id number] Care Team Providers Care Aquarium Specialist Name Role Phone Rekha Arshad MD Primary Care Provider [phone] Medical History Medical History Date Comments Colonoscopy [...] use COPD (chronic obstructive pu lmonary disease) ([facility] V24, [facility] V28) 2018 DX:COPD (chronic o bstructive pulmonary disease) ([facility]); COMMENT: On CXR 10/2018 Former tobacco use [...] age to complete this topic Care Teams Aquarium Specialist Relationship Specialty Start Date End Date Rekha Arshad MD PCP - General Internal Medicine 10/04/17
== END 2025-07-09 16:11 | disposition home or self-care (01) ==
LOC: HO.US 16:10
PROVIDERS: PCP Internal Medicine; Visit Provider Internal Medicine
DX: N50.82 Scrotal pain (principal)
CPT/HCPCS: 76870

== ENCOUNTER → 2025-07-09 16:16 | Outpatient (BNV) | payer OTHER, SELFPAY | PROVIDERS: PCP Internal Medicine; Visit Provider Radiology Diagnostic Radiology | DX: N43.3 Hydrocele, unspecified (principal); I86.1 Scrotal varices | CPT/HCPCS: 76870 ==